=== PATIENT | male | born 1940 | race Caucasian/White ===

== ENCOUNTER → 2018-05-07 | Outpatient (CLI) | payer OTHER ==
[~2018-05-07] MED LIST: ALTACE10 MG PO; BACTRIM DS TAB1 EACH PO; COUMADIN 2.5MG2.5 M1 PO; CRESTOR10 MG PO; MEDROLDOSEPACK PO; METFORMIN HCL500 MG PO; PROCARDIA XL30 MG PO; TRIAMCINOLONE A80 G2 TOP
== END ==
LOC: M.WC 09:28
DX: T23.222A Burn of second degree of single left finger (nail) except thumb, initial encounter (principal); T31.0 Burns involving less than 10% of body surface; L03.114 Cellulitis of left upper limb; E11.22 Type 2 diabetes mellitus with diabetic chronic kidney disease; I12.9 Hypertensive chronic kidney disease with stage 1 through stage 4 chronic kidney disease, or unspecified chronic kidney disease; N18.9 Chronic kidney disease, unspecified; E11.36 Type 2 diabetes mellitus with diabetic cataract; E11.40 Type 2 diabetes mellitus with diabetic neuropathy, unspecified; E78.5 Hyperlipidemia, unspecified; G47.30 Sleep apnea, unspecified; F17.200 Nicotine dependence, unspecified, uncomplicated; F31.9 Bipolar disorder, unspecified; X08.8XXA Exposure to other specified smoke, fire and flames, initial encounter; Y93.89 Activity, other specified; Y92.89 Other specified places as the place of occurrence of the external cause; Y99.8 Other external cause status

== ENCOUNTER → 2018-05-11 | Outpatient (CLI) | payer OTHER | LOC: M.WC 06:14 | DX: T23.222D Burn of second degree of single left finger (nail) except thumb, subsequent encounter (principal); T31.0 Burns involving less than 10% of body surface; E11.22 Type 2 diabetes mellitus with diabetic chronic kidney disease; I12.9 Hypertensive chronic kidney disease with stage 1 through stage 4 chronic kidney disease, or unspecified chronic kidney disease; N18.9 Chronic kidney disease, unspecified; E11.40 Type 2 diabetes mellitus with diabetic neuropathy, unspecified; E11.36 Type 2 diabetes mellitus with diabetic cataract; E78.5 Hyperlipidemia, unspecified; G47.30 Sleep apnea, unspecified; F31.9 Bipolar disorder, unspecified; X08.8XXD Exposure to other specified smoke, fire and flames, subsequent encounter; F17.200 Nicotine dependence, unspecified, uncomplicated ==

== ENCOUNTER → 2018-05-14 | Outpatient (CLI) | payer OTHER | LOC: M.WC 02:24 | DX: T23.232D Burn of second degree of multiple left fingers (nail), not including thumb, subsequent encounter (principal); E11.22 Type 2 diabetes mellitus with diabetic chronic kidney disease; I12.9 Hypertensive chronic kidney disease with stage 1 through stage 4 chronic kidney disease, or unspecified chronic kidney disease; N18.3 Chronic kidney disease, stage 3 (moderate); E11.42 Type 2 diabetes mellitus with diabetic polyneuropathy; E11.65 Type 2 diabetes mellitus with hyperglycemia; E11.36 Type 2 diabetes mellitus with diabetic cataract; E78.5 Hyperlipidemia, unspecified; I25.10 Atherosclerotic heart disease of native coronary artery without angina pectoris; G47.30 Sleep apnea, unspecified; F31.9 Bipolar disorder, unspecified; F17.200 Nicotine dependence, unspecified, uncomplicated; X17.XXXD Contact with hot engines, machinery and tools, subsequent encounter ==

== ENCOUNTER → 2018-05-21 | Outpatient (CLI) | payer OTHER | LOC: M.WC 08:00 | DX: T23.222D Burn of second degree of single left finger (nail) except thumb, subsequent encounter (principal); T31.0 Burns involving less than 10% of body surface; E11.22 Type 2 diabetes mellitus with diabetic chronic kidney disease; I12.9 Hypertensive chronic kidney disease with stage 1 through stage 4 chronic kidney disease, or unspecified chronic kidney disease; N18.9 Chronic kidney disease, unspecified; E11.40 Type 2 diabetes mellitus with diabetic neuropathy, unspecified; E11.36 Type 2 diabetes mellitus with diabetic cataract; E78.5 Hyperlipidemia, unspecified; E66.3 Overweight; G47.30 Sleep apnea, unspecified; F31.9 Bipolar disorder, unspecified; F17.200 Nicotine dependence, unspecified, uncomplicated; Z68.30 Body mass index [BMI] 30.0-30.9, adult; X08.8XXD Exposure to other specified smoke, fire and flames, subsequent encounter ==

== ENCOUNTER → 2018-05-28 | Outpatient (CLI) | payer OTHER | LOC: M.WC 04:42 | DX: T23.232D Burn of second degree of multiple left fingers (nail), not including thumb, subsequent encounter (principal); T31.0 Burns involving less than 10% of body surface; E11.22 Type 2 diabetes mellitus with diabetic chronic kidney disease; E11.40 Type 2 diabetes mellitus with diabetic neuropathy, unspecified; E11.65 Type 2 diabetes mellitus with hyperglycemia; E11.36 Type 2 diabetes mellitus with diabetic cataract; E78.5 Hyperlipidemia, unspecified; I12.9 Hypertensive chronic kidney disease with stage 1 through stage 4 chronic kidney disease, or unspecified chronic kidney disease; N18.9 Chronic kidney disease, unspecified; G47.30 Sleep apnea, unspecified; F31.9 Bipolar disorder, unspecified; F17.200 Nicotine dependence, unspecified, uncomplicated; X17.XXXD Contact with hot engines, machinery and tools, subsequent encounter ==

== ENCOUNTER 2018-06-12 18:24 | Inpatient (IN) | payer OTHER ==
[2018-06-12] VITALS (10 sets, daily range): BP systolic 131–190; BP diastolic 57–78
[~2018-06-12] VITALS: Ht 182.9 cm; Wt 94.3 kg
[~2018-06-12 18:24] MED LIST changes: -COUMADIN 2.5MG2.5 M1 PO
[2018-06-12 18:45] LABS: HEMATOCRIT 48.1 % (42.0-52.0); MCH 29.9 pg (26.0-34.0); MCHC 33.4 g/dL (28.0-37.0); MCV 89.5 fL (80.0-100.0); MPV 8.2 fl. (7.2-11.1); NUCLEATED RBCS 0 /100WBC; PLATELET COUNT* 220 thou/uL (150-400); RBC 5.37 mil/uL (4.50-6.00); RDW-CV 14.9 % (10.5-14.5)
[2018-06-12 18:53] LABS: ANION GAP 7 mmol/L (7-16); BUN 15 mg/dL (7-18); CALCIUM 8.7 mg/dL (8.5-10.1); CHLORIDE 97 mmol/L (98-107); CO2 31 mmol/L (21-32); CREATININE 1.3 mg/dL (0.6-1.3); GLUCOSE 147 mg/dL (70-99); POTASSIUM 4.6 mmol/L (3.5-5.1); SODIUM 135 mmol/L (136-145)
[2018-06-12 18:55] LABS: APTT 27.6 Seconds (25.0-31.3); INR 1.1; PROTIME 11.4 Seconds (9.20-11.50)
[2018-06-12 19:04] LABS: ALBUMIN 4.4 g/dL (3.4-5.0); ALKALINE PHOSPHATASE 69 U/L (46-116); NT-PRO BRAIN NAT PEPTIDE 1408 pg/mL (<300); SGOT 21 U/L (15-37); SGPT 29 U/L (30-65); TOTAL BILIRUBIN 1.4 mg/dL (<0.1-1.0); TOTAL PROTEIN 8.7 g/dL (6.4-8.2); TROPONIN-I LEVEL <0.06 ng/mL (<0.06)
[2018-06-12 19:08] LABS: ABSOLUTE BASOPHILS 0.1 thou/uL (0.0-0.2); ABSOLUTE EOSINOPHILS 0.1 thou/uL (0.0-0.7); ABSOLUTE LYMPHOCYTES 1.4 thou/uL (0.8-5.3); ABSOLUTE MONOCYTES 0.1 thou/uL (0.0-1.2); ABSOLUTE NEUTROPHILS 11.2 thou/uL (1.6-8.1); ATYPICAL LYMPHS 4 %
[2018-06-12 19:09] LABS: PLATELET ESTIMATE ADEQUATE
[2018-06-13] VITALS (16 sets, daily range): BP systolic 109–144; BP diastolic 58–70
[2018-06-13 02:47] LABS: ABSOLUTE LYMPHOCYTES 0.7 thou/uL (0.8-5.3); ABSOLUTE MONOCYTES 0.4 thou/uL (0.0-1.2); ABSOLUTE NEUTROPHILS 14.3 thou/uL (1.6-8.1); BASOPHILS 0.2 %; HEMATOCRIT 45.8 % (42.0-52.0); HEMOGLOBIN 15.3 gm/dL (14.0-18.0); LYMPHOCYTES 4.6 %; MCH 29.8 pg (26.0-34.0); MCHC 33.5 g/dL (28.0-37.0); MCV 88.9 fL (80.0-100.0); MONOCYTES 2.6 %; MPV 8.2 fl. (7.2-11.1); NUCLEATED RBCS 0 /100WBC; PLATELET COUNT* 226 thou/uL (150-400); POLYS 92.6 %; RBC 5.15 mil/uL (4.50-6.00); WBC 15.4 thou/uL (4.0-11.0)
[2018-06-13 04:15] LABS: CALCIUM 8.4 mg/dL (8.5-10.1); CREATININE 1.4 mg/dL (0.6-1.3); POTASSIUM 4.3 mmol/L (3.5-5.1); TOTAL BILIRUBIN 1.2 mg/dL (<0.1-1.0); TOTAL PROTEIN 8.1 g/dL (6.4-8.2)
--- NOTE | 2018-06-13 12:48 | EKG ---
[place] [address] ELECTROCARDIOGRAM REPORT Name: ALEXANDER AN Room: [address] ADM IN M.R.#: [id number] Admission: 06/12/18 Attend Phys: Terry Eden MD Discharge: Date of : 42 Report #: [id number] THIS REPORT FOR: //name// [facility] ED Test Date: 2018-06-12 Test Time: 18:30:21 Pat Name: ALEXANDER AN Department: Room: [facility] Gender: M Acid Wash Operator: Lyle GIRALDO : 1940 Requested By: Dashawn Lipscomb Order Number: [id number] MD: Lino Horvath Measurements Intervals [place] Rate: 60 P: 0 RI: 68 QRS: -81 QRSD: 147 T: 85 QT: 457 QTc: 457 Interpretive Statements af Short RI interval Nonspecific IVCD with LAD LVH with secondary repolarization abnormality Inferior infarct, acute (RCA) Anterolateral infarct, old Probable RV involvement, suggest recording right precordial leads No previous ECG available for comparison Electronically Signed On 06-13-2018 12:48:19 CDT by Lino Horvath [email or web address] <ELECTRONICALLY SIGNED> By: Lino Horvath MD, FACC 06/13/18 1248 29 183 Lino Horvath MD, FACC /EPI
--- NOTE | 2018-06-13 12:48 | EKG ---
[place] [address] ELECTROCARDIOGRAM REPORT Name: ALEXANDER AN Room: [address] ADM IN M.R.#: [id number] Admission: 06/12/18 Attend Phys: Terry Eden MD Discharge: Date of : 42 Report #: [id number] THIS REPORT FOR: //name// [facility] ED Test Date: 2018-06-12 Test Time: 18:32:28 Pat Name: ALEXANDER AN Department: Room: [address] Gender: M Vice President Education: Lyle GIRALDO : 1940 Requested By: Dashawn Lipscomb Order Number: [id number] Reading MD: Lino Horvath Measurements Intervals [place] Rate: 60 P: AL: QRS: -81 QRSD: 133 T: 85 QT: 450 QTc: 450 Interpretive Statements Atrial fibrillation Nonspecific IVCD with LAD Left ventricular hypertrophy Probable inferior infarct, acute Anterolateral infarct, old No previous ECG available for comparison Electronically Signed On 06-13-2018 12:48:30 CDT by Lino Horvath [email or web address] <ELECTRONICALLY SIGNED> By: Lino Horvath MD, [facility] 06/13/18 1248 183 183 Lino Horvath MD, [facility] /EPI
[2018-06-14 00:34] VITALS: BP 125/53
[2018-06-14 04:25] VITALS: BP 115/63
[2018-06-14 07:55] VITALS: BP 126/60
[2018-06-14 09:41] LABS: ALBUMIN 3.4 g/dL (3.4-5.0); CALCIUM 8.5 mg/dL (8.5-10.1); CREATININE 1.7 mg/dL (0.6-1.3); POTASSIUM 3.9 mmol/L (3.5-5.1); TOTAL BILIRUBIN 0.9 mg/dL (<0.1-1.0); TOTAL PROTEIN 7.4 g/dL (6.4-8.2)
[2018-06-14 12:02] VITALS: BP 109/55
[2018-06-14 15:59] VITALS: BP 119/59
[2018-06-14 19:55] VITALS: BP 116/76
[2018-06-14 22:09] LABS: GLYCOHEMOGLOBIN (HGB A1C) 5.5 % (4.8-5.6)
[2018-06-15] VITALS: BP 150/67
[2018-06-15 04:00] VITALS: BP 121/72
[2018-06-15 04:53] LABS: CHOLESTEROL 141 mg/dL (<200); HDL CHOLESTEROL 48 mg/dL (>40); LDL CHOLESTEROL 79 mg/dL (<100); TC:HDL 2.9 Ratio (Not establshd); TRIGLYCERIDE 74 mg/dL (<150); VLDL 15 mg/dL (<40)
[2018-06-15 05:20] LABS: SERUM ASSESSMENT CLEAR
[2018-06-15 08:30] VITALS: BP 121/66
[2018-06-15 12:00] VITALS: BP 128/72
--- NOTE | 2018-06-15 13:22 | CON ---
[address] [address] CONSULTATION Name: ALEXANDER AN Room: [address] IN M.R.#: [id number] Admission: 06/12/18 Attend Phys: Terry Eden MD Discharge: Date of : 42 Report #: [id number] THIS REPORT FOR: //name// CC: Terry Lu DATE OF SERVICE: 06/13/2018 REFERRING PHYSICIAN: Terry Eden MD CHIEF COMPLAINT: Dyspnea. HISTORY OF PRESENT ILLNESS: The patient is a 78-year-old male who quit smoking at the age of 65. He was smoking at least 1 pack of cigarettes per day since the age of 16 or so. He states that he does not have COPD, is not on oxygen therapy at home. According to the patient, 3 days prior to admission he began to feel not well. His symptoms basically consisted of shortness of breath with exertion and generalized weakness. This lasted for about 3 days. On the day of admission, he was in bed lying down and states that he lost his ability to talk. He did not have any other symptoms. He was aware of his surroundings. He did not lose consciousness. He had not had any nausea, vomiting, chest or abdominal pain. He states he had no visual disturbance, nor did he have any headaches. His was present and since he was not getting any better, the EMS was called, the patient was brought to the Emergency Room. According to the patient, by the time he was loaded into the ambulance, he states that he started to feel better, was able to then at that point mobilize adequately and able to communicate. Today, he is feeling well. No shortness of breath or discomfort. PAST MEDICAL HISTORY: Significant for hemorrhoidectomy, nasal surgery, hypertension, diabetes. He has a pacemaker; he has had 2 different ones. He has a history of congestive failure. SOCIAL HISTORY: He is . He is a prior smoker. He quit drinking at the age of 36. He worked for [email or web address] and retired at the age of 56. REVIEW OF SYSTEMS: System review negative other than what is outlined above. ALLERGIES: PENICILLIN. MEDICATIONS: Prior to admission include nifedipine, ramipril, Crestor and metformin. FAMILY HISTORY: Noncontribut[place] [address] CONSULTATION Name: ALEXANDER AN Room: [address] IN [facility].#: [id number] Admission: 06/12/18 Attend Phys: Terry Eden MD Discharge: Date of : 42 Report #: [id number] PHYSICAL EXAMINATION: VITAL SIGNS: Blood pressure 132/68, respiratory rate 13 nonlabored, pulse rate 60 and regular, temperature 98.6. His rate is permanently paced. HEENT: Head atraumatic. Eyes: Pupils are round, equal, reactive. There is no facial weakness. His extraocular muscles are intact. Oral cavity moist, no lesions. Good dentition. NECK: No adenopathy. CHEST: Clear throughout. No wheezes, rales or rhonchi. CARDIOVASCULAR: Regular rhythm. No murmurs or rubs. ABDOMEN: Obese. EXTREMITIES: Negative for edema or clubbing. SKIN: Warm, dry without rash. LYMPHATICS: Negative for adenopathy. Pulses equal bilaterally. NEUROLOGIC: His cranial nerves appear intact. No lateralizing signs, strength equal bilaterally. IMAGING: Chest x-ray reveals no evidence of infiltrates or effusions. V/Q scan was low probability for PE. Venous Dopplers negative. LABORATORY DATA: Hemoglobin and hematocrit of 15 and 46, white count 15,000. Sodium 136, potassium 4.3, chloride 98, CO2 of 26, BUN of 21, creatinine 1.4, EGFR 49. IMPRESSION: 1. Probably transient ischemic attack. 2. Obesity. 3. History of pacemaker insertion. 4. Prior tobacco abuse, probably has a component of chronic obstructive pulmonary disease. RECOMMENDATIONS: Aspiration precautions, DVT prophylaxis. Continue with reflux prophylaxis. Initiate aerosol treatments q.i.d. at this time. Pulmonary hedrick, he will probably need a sleep study as an outpatient. Also, would recommend pulmonary functions. At this point, no further recommendations, we will sign off his case. <ELECTRONICALLY SIGNED> By: Natanael Smith MD 06/15/18 1322 1317 1809Alezio Smith MD /nt
[2018-06-15 15:19] VITALS: BP 130/76
[2018-06-15 19:20] VITALS: BP 123/68
[2018-06-16] VITALS: BP 137/65
[2018-06-16 04:00] VITALS: BP 142/72
[2018-06-16 05:44] LABS: ABSOLUTE EOSINOPHILS 0.1 thou/uL (0.0-0.7); ABSOLUTE LYMPHOCYTES 1.7 thou/uL (0.8-5.3); ABSOLUTE MONOCYTES 0.6 thou/uL (0.0-1.2); BASOPHILS 0.4 %; EOSINOPHILS 1.5 %; HEMATOCRIT 46.4 % (42.0-52.0); HEMOGLOBIN 15.3 gm/dL (14.0-18.0); LYMPHOCYTES 20.3 %; MCH 29.5 pg (26.0-34.0); MCHC 32.9 g/dL (28.0-37.0); MCV 89.8 fL (80.0-100.0); MONOCYTES 7.6 %; MPV 8.4 fl. (7.2-11.1); NUCLEATED RBCS 0 /100WBC; PLATELET COUNT* 198 thou/uL (150-400); POLYS 70.2 %; RBC 5.16 mil/uL (4.50-6.00); RDW-CV 15.3 % (10.5-14.5); WBC 8.5 thou/uL (4.0-11.0)
[2018-06-16 06:00] LABS: CALCIUM 8.3 mg/dL (8.5-10.1); CREATININE 1.2 mg/dL (0.6-1.3); POTASSIUM 4.3 mmol/L (3.5-5.1)
[2018-06-16 06:01] LABS: INR 1.1; PROTIME 11.2 Seconds (9.20-11.50)
[2018-06-16 08:54] VITALS: BP 143/62
[2018-06-16] MEDS ORDERED: COUMADIN 2.5MG2.5 M1 PO (10:18)
[2018-06-16 10:22] VITALS: BP 143/62
--- NOTE | 2018-06-16 10:38 | 2DMMODE ---
[place] [address] 2 D/M-MODE ECHOCARDIOGRAM Name: ALEXANDER AN Room: [address] IN [facility]#: [id number] Admission: 06/12/18 Attend Phys: Terry Eden, Discharge: Date of : 42 Date of Service: 06/15/18 1348 Report #: [id number] THIS REPORT FOR: //name// APPROVED REPORT Study performed: 06/15/2018 09:52:45 EXAM: Comprehensive 2D, Doppler, and color-flow Echocardiogram Patient Location: In-Patient Room #: [facility] Status: routine BSA: 2.17 HR: 63 bpm BP: 121/72 mmHg Rhythm: NSR Other Information Study Quality: Good Indications CVA/TIA Dyspnea Echo Enhancing Agent Indication: Rule out Shunt Agent(s) / Amount(s) Used: Agitated Saline 10 cc 2D Dimensions IVSd: 13.74 (7-11mm) LVOT Diam: 20.79 (18-24mm) LVDd: 45.20 mm PWd: 11.72 (7-11mm) Ascending Ao: 35.04 (22-36mm) LVDs: 25.10 (25-40mm) Aortic Root: 34.29 mm Volumes Left Atrial Volume (Systole) LA ESV Index: 37.80 mL/m2 Aortic Valve AoV Peak Gianluca.: 1.32 m/s AO Peak Gr.: 6.97 mmHg LVOT Max P.59 mmHg AO Mean Gr.: 4.12 mmHg LVOT Mean P.89 mmHg LVOT Max V: 1.07 m/s AO V2 VTI: 26.31 cm LVOT Mean V: 0.83 m/s BLAYNE (VTI): 3.27 cm2 LVOT V1 VTI: 25.37 [place] [address] 2 D/M-MODE ECHOCARDIOGRAM Name: ALEXANDER AN Room: [address] IN .R.#: [id number] Admission: 06/12/18 Attend Phys: Terry Eden, Discharge: Date of : 42 Date of Service: 06/15/18 1348 Report #: [id number] Mitral Valve MV Decel. Time: 166.52 ms MV PHT: 48.29 ms MVA (PHT): 4.56 cm2 TDI Medial E' Gianluca.: 0.12 m/s Lateral E' Gianluca.: 0.12 m/s Pulmonary Valve PV Peak Gianluca.: 0.98 m/s PV Peak Gr.: 3.82 mmHg Tricuspid Valve RAP Estimate: 5.00 mmHg TR Peak Gr.: 22.80 mmHg RVSP: 27.80 mmHg PA Pressure: 27.80 mmHg Left Ventricle The left ventricle is normal size. There is normal LV segmental wall motion. Mild concentric left ventricular hypertrophy. Left ventricular systolic function is normal. The left ventricular ejection fraction is within the normal range. LVEF is 55-60%. Grade IV - fixed restrictive diastolic dysfunction. Right Ventricle The right ventricle is normal size. The right ventricular systolic function is normal. Pacemaker lead is present in the right ventricle. Atria Left atrium is mildly dilated. Interatrial septum is intact without evidence of ASD or PFO. The right atrium size is normal. Aortic Valve Mild aortic valve sclerosis. Mild aortic regurgitation. There is no aortic valvular stenosis. Mitral Valve The mitral valve is normal in structure. Trace mitral regurgitation. No evidence of mitral valve stenosis. Tricuspid Valve The tricuspid valve is normal in structure. Trace tricuspid regurgitation. No pulmonary [place] [address] 2 D/M-MODE ECHOCARDIOGRAM Name: ALEXANDER AN Room: [address] IN [facility]#: [id number] Admission: 06/12/18 Attend Phys: Terry Eden, Discharge: Date of : 42 Date of Service: 06/15/18 1348 Report #: [id number] The pulmonary valve is normal in structure. Mild pulmonic regurgitation. Great Vessels The aortic root is normal in size. IVC is normal in size and collapses >50% with inspiration. Pericardium There is no pericardial effusion. <Conclusion> Mild concentric left ventricular hypertrophy. LVEF is 55-60%. Left atrium is mildly dilated. Mild aortic valve sclerosis. Interatrial septum is intact without evidence of ASD or PFO. <ELECTRONICALLY SIGNED> By: Alexander Hernández MD, FACC 06/15/18 1348 1348 1348 Alexander Hernández MD, FACC /INF
[2018-06-16 11:12] VITALS: BP 143/62
[2018-06-16 12:02] VITALS: BP 143/62
[2018-06-16 23:08] LABS: ADENOVIRUS Negative (Negative); INFLUENZA A Negative (Negative); INFLUENZA B Negative (Negative); METAPNEUMOVIRUS Negative (Negative); PARAINFLUENZA 1 Negative (Negative); PARAINFLUENZA 2 Positive (Negative); PARAINFLUENZA 3 Negative (Negative); RHINOVIRUS Negative (Negative); RSV A Negative (Negative); RSV B Positive (Negative)
--- NOTE | 2018-06-27 12:28 | CON ---
[address] [address] CONSULTATION Name: ALEXANDER AN Room: [address] IN M.R.#: [id number] Admission: 06/12/18 Attend Phys: Terry Eden MD Discharge: 06/16/18 Date of : 42 Report #: [id number] THIS REPORT FOR: //name// [facility]ICIAN: Dr. Ilia Rivera. DIVER HELPER: Dr. Marcell Polk. CHIEF COMPLAINT: Weakness, slurred speech. HISTORY OF PRESENT ILLNESS: The patient is a 78-year-old man with an underlying history of atrial fibrillation who has presented to the Emergency Department here with an episode of weakness, fatigue and he also had slurred speech while he was lying in bed. He felt like he could not move. This morning, he is asymptomatic. He was admitted to the ICU. He has underlying paced rhythm. Historically, based on records from outpatient data, he has underlying persistent atrial fibrillation. He had been taking Xarelto samples. He could not afford the copay and apparently did not want to be on warfarin at that time. However, he ran out of samples and did not really notify us. He has not taken the drug in several days. From a cardiovascular standpoint, he denies palpitations, heart racing or skipping. His underlying rhythm is paced, was stable without any cardiac pauses. He has no complaints of chest discomfort. He had some shortness of breath. His chest x-ray was unremarkable for congestive heart failure. PAST MEDICAL HISTORY: High grade AV block, status post permanent pacemaker implantation, AAA, persistent atrial fibrillation, tobacco abuse, diabetes, hypertension, hyperlipidemia. HOME MEDICATIONS: Include Glucophage 500 mg p.o. daily, Adalat 30 mg p.o. daily, Altace 10 mg daily and Crestor 10 mg daily. PAST SURGICAL HISTORY: [employer] permanent pacemaker implanted approximately 5 years ago generator change, hemorrhoid surgery, ____. FAMILY HISTORY: Positive for cancer and heart attack. SOCIAL HISTORY: He is a former smoker, smoked between age 14 to [place] 66[place] [address] CONSULTATION Name: JUVEALEXANDER Clyde Room: [address]#: [id number] Admission: 06/12/18 Attend Phys: Terry Eden MD Discharge: 06/16/18 Date of : 41 Report #: [id number] drinks occasionally. REVIEW OF SYSTEMS: GENERAL: No fevers or chills. PULMONARY: No wheezing or cough. Positive shortness of breath. NEUROLOGIC: As noted above. Positive slurred speech. Positive weakness, no headaches, no blurred vision or seizure. PSYCHIATRIC: No depression, no anxiety. MUSCULOSKELETAL: No arthritis, connective tissue disease. SKIN: No rashes, hives or skin conditions. EYES: Positive for glasses. EARS, NOSE, THROAT AND MOUTH: No decreased hearinig, no bleeding from nose. RESPIRATORY: Positive cough. CARDIOVASCULAR: No palpitations, no chest discomfort, no shortness of breath. ENDOCRINE: Positive diabetes. GASTROINTESTINAL: No vomiting, vomiting blood or ulcers, jaundice, hepatitis. GENITOURINARY: No dysuria or hematuria. PHYSICAL EXAMINATION: VITAL SIGNS: Blood pressure 132/68, pulse is 60, O2 sats 94% on 2 liters nasal cannula. GENERAL: The patient is alert, oriented, in no apparent distress. HEENT: Unremarkable. NECK: Supple. No jugular venous distention. CARDIOVASCULAR: Regular. I cannot hear a rub or gallop. LUNGS: Clear to auscultation. ABDOMEN: Soft, nontender. EXTREMITIES: There is no peripheral edema. NEUROLOGIC: There are no focal deficits. SKIN: Warm and dry. LABORATORY DATA: ECG demonstrates a paced rhythm. Chest x-ray shows no acute process. Hemoglobin is 15.2, white blood cell count is 15, platelet count is 226,000. Sodium is 136, potassium is 4.3, chloride is 98, CO2 is 26, BUN is 21, creatinine is 1.4. INR is 1.1. D-dimer is 0.88. IMPRESSION: 1. Slurred speech, weakness. Given his underlying history of atrial fibrillation and his CHADS-VASc score of 4, he should be anticoagulated and he was supposed to have been taking Xarelto, but he apparently has not been taking it. After discussing with the patient the risks and benefits, he is agreeable to starting warfarin. However, I want to have him seen by Neurology first. 2. Atrial fibrillation. As noted above, he is asymptomatic from a cardiovascular standpoint from this. 3. Status post permanent pacemaker. His device function overnight on telemetry is unremarkable and he has home monitoring device. He has a [employer] device and [address] [address] CONSULTATION Name: ALEXANDER AN Room: [address]ain[place].#: [id number] Admission: 06/12/18 Attend Phys: Terry Eden MD Discharge: 06/16/18 Date of : 42 Report #: [id number] he is followed by Dr. Polk. 4. Peripheral vascular disease. He will continue with aggressive blood pressure monitoring and surveillance by his usual care team. <ELECTRONICALLY SIGNED> By: Lino Horvath MD, FACC 06/27/18 1228 1055 1243Lino Horvath MD, FACC /nt
--- NOTE | 2018-07-13 12:29 | CON ---
[address] [address] CONSULTATION Name: ALEXANDER AN Room: [address] IN M.R.#: [id number] Admission: 06/12/18 Attend Phys: Terry Eden MD Discharge: 06/16/18 Date of : 42 Report #: [id number] THIS REPORT FOR: //name// CC: Terry Lu DATE OF SERVICE: 06/14/2018 HISTORY OF PRESENT ILLNESS: The patient is a 78-year-old man. He was admitted to the hospital through the Emergency Room on 06/12/2018 after about 3 days of shortness of breath. The patient had noted over the last several days lethargy, runny nose, cough and sputum. He states that he was unable to breathe when he was lying down and he had gurgling speech, and the chart indicated that he could not talk for a period of time. The patient has completely recovered from those symptoms. He has a long history of diabetes for which he takes metformin and he has a complicated cardiovascular history with hypertension, atrial fibrillation and the placement of a permanent pacemaker. He has been seen for congestive heart failure as well. At the present time, he is feeling well, but neurology is consulted regarding the possibility of a TIA causing his inability to speak. He does complain of a history of swallowing at times, but the symptom that is bothering him the most right now is his memory. He states that he puts things down and he cannot remember them and this has been going on for 2-3 months and he thinks it is getting worse over time. He has no trouble with driving. He never gets lost, and he has no trouble taking care of his own financial affairs. PAST MEDICAL HISTORY: Positive for high-grade AV block, status post permanent pacemaker, atrial fibrillation and he had been on Xarelto in the past and will be going back on it. Tobacco abuse, he stopped smoking several years ago. Hypertension and hyperlipidemia. FAMILY HISTORY: Positive for cancer and heart disease. SOCIAL HISTORY: He stopped smoking at 66. He drinks occasionally. REVIEW OF SYSTEMS: He did report fever, although this has not been documented. He denies neurological symptoms other than pain in the right shoulder area, particularly with movement. He does note some problems with his gait. He denies depression or anxiety, although he states that he had been under a lot of stress recently and he had been sleep deprived. He denies rashes. He states that he does have a history of previous surgery on his nose from years ago and has runny nose from time to time. Gastrointestinal and genitourinary [place] [address] CONSULTATION Name: ALEXANDER AN Room: [address] IN M.R.#: [id number] Admission: 06/12/18 Attend Phys: Terry Eden MD Discharge: 06/16/18 Date of : 42 Report #: [id number] PHYSICAL EXAMINATION: VITAL SIGNS: Blood pressure 109/55, temperature 36.3, pulse 60. GENERAL APPEARANCE: The patient is an overweight man, appearing his stated age, in no apparent distress. NECK: Supple. No edema is noted. NEUROLOGIC: He has normal mental status. He did well with remembering 3 objects after 3 minutes. He only missed 1 month in reciting the months in backwards order, which was September. He had mild difficulty spelling "world" backwards. He did calculations well. No evidence of aphasia was noted. On cranial nerve testing, pupils are small, but equally round and reactive. Extraocular movements are full. Visual peña are full to confrontation. Facial sensation and mobility are normal. Hearing is intact bilaterally. The patient has a prominent rhinophyma. Tongue is normal. Motor testing revealed full power in his arms and legs. There was mild decreased effort in the right upper arm due to pain in the shoulder. The tone was normal. No tremor was noted. Coordination testing revealed difficulty with fzbuje-rw-lqwz, left worse than right and sbor-bl-mbuy, left worse than right. He had mild clumsy movements on rapid alternating movement testing, particularly of the left hand. Reflexes were 2+ in the arms, 3+ at the knees, trace at the ankles bilaterally. The toes were downgoing. Gait was wide based and he was mildly ataxic. IMAGING: Have shown a head CT scan, which showed cerebral atrophy and volume loss, no acute changes were seen. There are bilateral basal ganglia calcifications noted. Carotid Dopplers showed no significant stenosis. LABORATORY STUDIES: Showed an elevated white count of 13,000, platelet count was 226,000, hemoglobin 15.3. Sed rate was 8. IMPRESSION: 1. 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 2. He does have some mild problems with short-term memory, but does not meet criteria for dementia. More likely, this represents a mild cognitive impairment. He has been under a lot of stress lately, which may have contributed to this problem. 3. I would recommend checking B12 levels since he is on metformin, which can interfere with B12. 4. I see absolutely no problem with restarting his Xarelto. He cannot have an MRI scan of the head because of his pacemaker. There is a possibility that he could be having very small cardioembolic events, but the treatment for this would be to go back on the Xarelto as well. [place] [id number] CONSULTATION Name: ALEXANDER AN Room: [address] IN .R.#: [id number] Admission: 06/12/18 Attend Phys: Terry Eden MD Discharge: 06/16/18 Date of : 42 Report #: [id number] Thanks again for the kind consultation. <ELECTRONICALLY SIGNED> By: Alfredo Barnett MD 07/13/18 1229 1407 1819Alfredo Barnett MD /nt
== END 2018-06-16 14:14 | disposition home health service (06) | DRG 177 ==
LOC: M.ERS 18:24 → M.2W 19:50 → M.ICU 19:50 → M.TBA-ER 19:50 → M.ICU 20:45 → M.2W 06-13 14:00
PROVIDERS: Emergency Medicine; Emergency Medicine Emergency Medical Services; Internal Medicine Cardiovascular Disease; ADMIT Internal Medicine
PROC: 5A09357 Assistance with Respiratory Ventilation, Less than 24 Consecutive Hours, Continuous Positive Airway Pressure (ICD-10-PCS; principal; 2018-06-13)
DX: J15.6 Pneumonia due to other Gram-negative bacteria (principal); J96.01 Acute respiratory failure with hypoxia; I50.33 Acute on chronic diastolic (congestive) heart failure; R65.10 Systemic inflammatory response syndrome (SIRS) of non-infectious origin without acute organ dysfunction; J44.0 Chronic obstructive pulmonary disease with (acute) lower respiratory infection; I48.1 Persistent atrial fibrillation; G45.9 Transient cerebral ischemic attack, unspecified; E78.5 Hyperlipidemia, unspecified; I11.0 Hypertensive heart disease with heart failure; E11.42 Type 2 diabetes mellitus with diabetic polyneuropathy; E66.9 Obesity, unspecified; E11.51 Type 2 diabetes mellitus with diabetic peripheral angiopathy without gangrene; Z88.0 Allergy status to penicillin; Z95.0 Presence of cardiac pacemaker; Z87.891 Personal history of nicotine dependence; Z79.01 Long term (current) use of anticoagulants; Z79.899 Other long term (current) drug therapy; Z80.9 Family history of malignant neoplasm, unspecified; Z82.49 Family history of ischemic heart disease and other diseases of the circulatory system; Z79.84 Long term (current) use of oral hypoglycemic drugs; Z68.28 Body mass index [BMI] 28.0-28.9, adult

== ENCOUNTER 2019-08-07 14:57 | Inpatient (IN) | payer OTHER ==
[~2019-08-07] VITALS: Ht 182.9 cm; Wt 104.7 kg
[~2019-08-07 14:57] MED LIST changes: +COUMADIN 2.5MG2.5 M1 PO
[2019-08-07 15:05] VITALS: BP 173/67
[2019-08-07] MEDS ORDERED: NEURONTIN 300M300 M2 PO (15:10)
[2019-08-07] MEDS ORDERED: TRAMADOL 50 MG50 MG PO (15:11)
[2019-08-07] MEDS ORDERED: VENLAFAXINE H37.5 MG PO (15:13)
[2019-08-07] MEDS ORDERED: ELIQUIS5 MG PO (15:13)
[2019-08-07 15:29] LABS: HEMATOCRIT 43.5 % (42.0-52.0); HEMOGLOBIN 14.8 gm/dL (14.0-18.0); MCH 30.5 pg (26.0-34.0); MCV 89.8 fL (80.0-100.0); MPV 8.6 fl. (7.2-11.1); NUCLEATED RBCS 0 /100WBC; PLATELET COUNT* 243 thou/uL (150-400); RBC 4.84 mil/uL (4.50-6.00); RDW-CV 14.4 % (10.5-14.5); WBC 16.8 thou/uL (4.0-11.0)
[2019-08-07 15:39] LABS: CALCIUM 9.7 mg/dL (8.5-10.1); CREATININE 1.3 mg/dL (0.6-1.3); POTASSIUM 3.8 mmol/L (3.5-5.1)
[2019-08-07 15:49] LABS: ALBUMIN 3.6 g/dL (3.4-5.0); TOTAL BILIRUBIN 1.9 mg/dL (<0.1-1.0); TOTAL PROTEIN 8.3 g/dL (6.4-8.2)
[2019-08-07 15:58] LABS: ABSOLUTE EOSINOPHILS 0.2 thou/uL (0.0-0.7); ABSOLUTE LYMPHOCYTES 0.8 thou/uL (0.8-5.3); ABSOLUTE MONOCYTES 1.3 thou/uL (0.0-1.2); ABSOLUTE NEUTROPHILS 14.4 thou/uL (1.6-8.1); PLATELET ESTIMATE ADEQUATE
[2019-08-07 16:08] LABS: APTT 31.7 Seconds (25.0-31.3); INR 1.2; PROTIME 12.1 Seconds (9.20-11.50)
[2019-08-07 17:26] LABS: URINE BILIRUBIN NEGATIVE (Negative); URINE BLOOD TRACE (Negative); URINE CLARITY CLEAR; URINE COLOR YELLOW; URINE GLUCOSE-RANDOM NEGATIVE (Negative); URINE KETONES NEGATIVE (Negative); URINE LEUKOCYTES-REFLEX NEGATIVE (Negative); URINE NITRITE-REFLEX NEGATIVE (Negative); URINE PROTEIN 1+ (Negative); URINE UROBILINOGEN 0.2 E.U./dl (0.2-1.0)
[2019-08-07 18:13] VITALS: BP 118/58
[2019-08-07 18:30] VITALS: BP 141/61
--- NOTE | 2019-08-07 19:31 | NUR ---
PATIENT ARRIVED TO FLOOR AT 1830 FROM ER. PATIENT SETTLED TO ROOM AND HISTORY, ASSESSMENT AND VITALS COMPLETED AND DOCUMENTED. PATIENT HAS COMPLAINTS OF ABDOMINAL PAIN BUT STATES PAIN MEDICATION HAS HELPED. PATIENT IS NPO. CALL LIGHT WITHIN REACH.
[2019-08-07 20:00] VITALS: BP 137/70
[2019-08-08 04:52] LABS: ABSOLUTE BASOPHILS 0.1 thou/uL (0.0-0.2); ABSOLUTE EOSINOPHILS 0.1 thou/uL (0.0-0.7); ABSOLUTE LYMPHOCYTES 1.1 thou/uL (0.8-5.3); ABSOLUTE MONOCYTES 1.1 thou/uL (0.0-1.2); ABSOLUTE NEUTROPHILS 14.3 thou/uL (1.6-8.1); BASOPHILS 0.5 %; EOSINOPHILS 0.6 %; HEMATOCRIT 38.7 % (42.0-52.0); LYMPHOCYTES 6.6 %; MCH 29.7 pg (26.0-34.0); MONOCYTES 6.7 %; MPV 8.6 fl. (7.2-11.1); NUCLEATED RBCS 0 /100WBC; PLATELET COUNT* 231 thou/uL (150-400); POLYS 85.6 %; WBC 16.7 thou/uL (4.0-11.0)
[2019-08-08 05:04] LABS: CALCIUM 8.5 mg/dL (8.5-10.1); CREATININE 1.2 mg/dL (0.6-1.3); POTASSIUM 3.8 mmol/L (3.5-5.1)
[2019-08-08 05:24] LABS: HEMOGLOBIN 12.8 gm/dL (14.0-18.0)
--- NOTE | 2019-08-08 05:58 | NUR ---
PT ALERT AND ORIENTED. VSS ON RA. RAC IV SL. ABX FIVEN PER EMAR. NPO. SURGERY HVAE SEEN PT. SEE CONSULTATION NOTE. GI TO SEE PT THI AM. PT COMPLAINING OF BEING HUNGRY AND KEPT ASKING FOR FOOD. PT WAS UP TO BATHROOM BEGINNING OF SHIFT. BUT SEEMED UNSTEADY NIGHT PROGRESSED. URINAL PROVIDED. FALL PRECAUTION IN PLACE. CALL LIGHT WITHIN REACH. WILL CONTINUE TO MONITOR.
[2019-08-08 08:10] VITALS: BP 119/58
--- NOTE | 2019-08-08 11:20 | EKG ---
[place] [address] ELECTROCARDIOGRAM REPORT Name: ALEXANDER AN Room: [address] ADM IN .R.#: [id number] Admission: 08/07/19 Attend Phys: Terry Eden MD Discharge: Date of : 42 Report #: [id number] THIS REPORT FOR: //name// [facility] ED Test Date: 2019-08-07 Test Time: 15:05:49 Pat Name: ALEXANDER AN Department: Room: [facility] Gender: M Warehouse Delivery Manager: [place] : 1940 Requested By: Yady Topete Order Number: [id number] MD: Alexander Hernández Measurements Intervals [place] Rate: 60 P: [place]: QRS: -81 QRSD: 140 T: 92 QT: 473 QTc: 473 Interpretive Statements Afib/flut and V-paced complexes No further analysis attempted due to paced rhythm Compared to ECG 06/12/2018 18:32:28 no change Electronically Signed On 08-08-2019 11:20:19 FILAMENT WELDER by Alexander Hernández [email or web address] <ELECTRONICALLY SIGNED> By: Alexander Hernández MD, FACC 08/08/19 1120 1505 1505 Alexander Hernández MD, [facility] /EPI
[2019-08-08 15:56] VITALS: BP 143/64
--- NOTE | 2019-08-08 17:41 | NUR ---
PATIENT RESTING IN BED. PATIENT IS UP STANDBY ASSIST WITH CANE TO BATHROOM. PATIENT HAS HAD NO BOWEL MOVEMENTS TODAY. PATIENT IS UPSET THAT HE IS NPO, EDUCATION REPEATEDLY GIVEN ON NPO STATUS. PATIENT HAS COMPLAINTS OF ABDOMINAL PAIN, TREATED ADEQUATELY WITH MEDICATION. PATIENT DENIES ANY NEEDS AT THIS TIME. CALL LIGHT WITHIN REACH. BED ALARM ON.
[2019-08-08 20:00] VITALS: BP 136/64
[2019-08-09 05:16] LABS: ABSOLUTE EOSINOPHILS 0.2 thou/uL (0.0-0.7); ABSOLUTE MONOCYTES 0.8 thou/uL (0.0-1.2); ABSOLUTE NEUTROPHILS 8.1 thou/uL (1.6-8.1); BASOPHILS 0.4 %; EOSINOPHILS 2.3 %; HEMATOCRIT 42.3 % (42.0-52.0); MCH 29.5 pg (26.0-34.0); MCV 89.4 fL (80.0-100.0); MONOCYTES 7.7 %; MPV 8.7 fl. (7.2-11.1); NUCLEATED RBCS 0 /100WBC; PLATELET COUNT* 262 thou/uL (150-400); POLYS 79.6 %; RBC 4.73 mil/uL (4.50-6.00); RDW-CV 14.4 % (10.5-14.5); WBC 10.2 thou/uL (4.0-11.0)
[2019-08-09 05:35] LABS: CALCIUM 8.8 mg/dL (8.5-10.1); CREATININE 1.1 mg/dL (0.6-1.3); POTASSIUM 3.7 mmol/L (3.5-5.1)
--- NOTE | 2019-08-09 06:18 | NUR ---
PT SLEPT WELL OVERNIGHT WITHOUT COMPLAINTS. UP WITH SBA AND WALKER TO BR TO VOID, URINAL AT TIMES. NPO. PT NOT HAPPY ABOUT NPO STATUS, STATES HE IS GOING TO GET SOME FRIED CHICKEN TODAY, EDUCATION GIVEN. HS ACCUCHECK 106, NO INSULIN NEEDED. AM LABS. TO HAVE ABD XRAY TODAY. RAC IVF INFUSING PER PUMP, ABX GIVEN ORDERED. USING SWABS FOR ORAL CARE. CALL LITE IN EASY REACH, BED ALARM ON FOR SAFETY.
[2019-08-09 07:50] VITALS: BP 140/68
--- NOTE | 2019-08-09 13:40 | NUR ---
Nutrition: Consult for "loss of appetite." Pt stated he hasn't eaten in 7 days. Admitted with colitis, diverticulitis. Started CLD today; he was eager to eat lunch and was finishing it all during our visit. Albumin 3.6. Wt: 204#. He is hopeful to have more substantial food later today. Low nutrition risk.
[2019-08-09 15:27] VITALS: BP 137/83
--- NOTE | 2019-08-09 18:07 | NUR ---
PT A&OX3 VSS. DENIES PAIN AT THIS TIME. PT RESTING IN BED WITH CALL LIGHT IN REACH. PT RAC IV DC'D THIS SHIFT BY PT. NO REDNESS/SWELLING/ACTIVE BLEEDING AT SITE. IV ACCESS STARTED IN R HAND, 20g. LINE PATENT, ANTIBIOTICS AND FLUIDS CONTINUE TO INFUSE. PT DIET ADVANCED TO CLEAR LIQUIDS BY PHYSICIAN. PT UP SBA W/WALKER. PT REMAINS CONTINIENT OF B/B. PT HAD ABD X RAY THIS AM, NO OBSTRUCTION FOUND. PT IS ACCUCHECK, BLOOD GLUCOSE READINGS REMAIN APPROPRIATE AND IN RANGE. WILL CONTINUE TO MONITOR.
[2019-08-09 20:00] VITALS: BP 150/67
[2019-08-10] MEDS ORDERED: BRILINTA60 MG PO (03:42)
[2019-08-10] MEDS ORDERED: VITAMIN D35000 UNIT PO (03:45)
[2019-08-10] MEDS ORDERED: ORADENT 0.1% DEN5 G1 TOP (03:55)
--- NOTE | 2019-08-10 04:49 | NUR ---
PATIENT NOT PROGRESSING TOWARDS GOALS: ABDOMEN REMAINS TENDER AND FIRM. PATIENT TOLERATING CLEAR LIQUIDS. IVF INFUSING PER ORDERS. NO BM THIS SHIFT. CALL LIGHT WITHIN REACH
[2019-08-10 04:57] LABS: ABSOLUTE EOSINOPHILS 0.3 thou/uL (0.0-0.7); ABSOLUTE LYMPHOCYTES 0.8 thou/uL (0.8-5.3); ABSOLUTE MONOCYTES 0.9 thou/uL (0.0-1.2); ABSOLUTE NEUTROPHILS 7.5 thou/uL (1.6-8.1); BASOPHILS 0.5 %; HEMATOCRIT 43.7 % (42.0-52.0); LYMPHOCYTES 8.9 %; MCH 30.6 pg (26.0-34.0); MCHC 34.4 g/dL (28.0-37.0); MONOCYTES 9.3 %; MPV 8.3 fl. (7.2-11.1); NUCLEATED RBCS 0 /100WBC; PLATELET COUNT* 276 thou/uL (150-400); POLYS 78.3 %; RBC 4.91 mil/uL (4.50-6.00); RDW-CV 14.2 % (10.5-14.5); WBC 9.6 thou/uL (4.0-11.0)
[2019-08-10 05:06] LABS: CALCIUM 8.7 mg/dL (8.5-10.1); CREATININE 1.1 mg/dL (0.6-1.3); POTASSIUM 3.5 mmol/L (3.5-5.1)
[2019-08-10 07:21] VITALS: BP 190/77
--- NOTE | 2019-08-10 15:01 | NUR ---
CM SPOKE WITH PT. HE WAS ALERT AND ORIENTED. HE SAID HE LIVES WITH HIS . SHE IS ABOUT 12 YEARS YOUNGER THAN HE IS. SHE WORKS 3 HRS/DAY OUTSIDE THE HOME. SHE CAN HELP HIM IF NEEDED. HE HAS FALLEN SOME AT HOME. HE HAS A CANE THAT HE USES. STATED AT SOME POINT HE NEEDS A HIP AND KNEE REPLACEMENT. HE SAID I HAVE TO GET RID OF THESE STOMACH PROBLEMS FIRST. HE THINKS HE HAD HOME HEALTH BEFORE BUT COULDNT REMEMBER NAME OF AGENCY. CM WILL FOLLOW FOR DISCHARGE PLANNING.
[2019-08-10 16:00] VITALS: BP 173/74
--- NOTE | 2019-08-10 17:20 | NUR ---
ASSESSMENT COMPLETE. PT ALERT AND ORIENTED X4, FORGETFUL AT TIMES. PT IS IMPULSIVE AND FALL RISK, MOVED CLOSER TO NURSES STATION ROOM 313. PT HAD SUPPOSITORY, PT REPORTS BOWEL MOVEMENTS. PT HAD ONE EPISODE OF VOMITTING THIS EVENING, SMALL AMOUNT OF GREEN EMESIS NOTED. IV ABX AND FLUIDS INFUSING. CLEAR LIQUID DIET. ACCU CHECK ACHS. KUB DONE THIS MORNING, SEE RESULTS. PT/OT CONSULTS. SEE ASSESSMENT AND VITALS FOR OTHER DETAILS. CALL LIGHT WITHIN REACH, BED ALARM IN PLACE. WILL CONTINUE PLAN OF CARE
[2019-08-10 19:50] VITALS: BP 160/71
[2019-08-11 04:30] LABS: HEMOGLOBIN 13.8 gm/dL (14.0-18.0); MCH 29.7 pg (26.0-34.0); MCHC 33.6 g/dL (28.0-37.0); MCV 88.4 fL (80.0-100.0); MPV 8.7 fl. (7.2-11.1); NUCLEATED RBCS 0 /100WBC; PLATELET COUNT* 309 thou/uL (150-400); RBC 4.64 mil/uL (4.50-6.00); RDW-CV 14.3 % (10.5-14.5); WBC 16.3 thou/uL (4.0-11.0)
[2019-08-11 04:40] LABS: ALBUMIN 2.5 g/dL (3.4-5.0); CALCIUM 8.3 mg/dL (8.5-10.1); CREATININE 1.1 mg/dL (0.6-1.3); POTASSIUM 3.8 mmol/L (3.5-5.1); TOTAL BILIRUBIN 0.9 mg/dL (<0.1-1.0); TOTAL PROTEIN 6.1 g/dL (6.4-8.2)
--- NOTE | 2019-08-11 04:54 | NUR ---
PT ALERT AND ORIENTED. FORGETFUL. DEMENTIA. PT SLEPT MOST OF SHIFT. DENIES PAIN N/V. MEDS GIVEN PER EMAR. ISOLATION FOR MRSA IN PLACE. Q2 TURN. INCONTINENT. FALL PRECAUTION IN PLACE. CALL LIGHT WITHIN REACH. HOURLY ROUNDINGS MADE. POSSIBLE DC TODAY. WILL CONTINUE TO MONITOR.
--- NOTE | 2019-08-11 05:02 | NUR ---
PT ALERT AND ORIENTED. SOMETIMES FORGETFUL. VSS ON RA. ASSESSMENT DOCUMENTED. PT SLEPT MOST OF SHIFT. MEDS GIVEN PER EMAR. TRAMADOL GIVEN FOR PAIN X1 THIS SHIFT. ABD DISTENDED. PT COMPLAINED OF NOT FEELING WELL. BLOOD GLUCOSE CHECKED AND WAS FINE. TEMP WAS FINE. PT DID NOT THROW UP THIS SHIFT. WENT BACK TO SLEEP AFTERWARDS. FALL PRECAUTION IN PLACE. CALL LIGHT WITHIN REACH. HOURLY ROUNDINGS MADE. WILL CONTINUE TO MONITOR.
[2019-08-11 05:55] LABS: ABSOLUTE MONOCYTES 0.8 thou/uL (0.0-1.2); ABSOLUTE NEUTROPHILS 14.5 thou/uL (1.6-8.1); ANISOCYTOSIS 1+; PLATELET ESTIMATE ADEQUATE; POIKILOCYTOSIS 1+
[2019-08-11 09:22] VITALS: BP 141/66
--- NOTE | 2019-08-11 10:34 | NUR ---
ASSUMED CARE OF PT AROUND 0730 THIS AM. REFER TO ASSESSMENT. PT DENIES N/V THIS AM. POOR APPETITE WITH BREAKFAST. PT REPORTS A COUPLE BOWEL MOVEMENTS YESTERDAY AND DENIES ANY TODAY. VSS. AT BEDSIDE. NO OTHER CONCERNS AT THIS TIME.CLWR. WCTM.
[2019-08-11 16:31] VITALS: BP 132/67
--- NOTE | 2019-08-11 17:04 | NUR ---
PT NOT PROGRESSING TOWARDS GOALS THIS SHIFT. POOR APPETITE THEN CHANGED TO NPO PER SURGERY. REPEATED CT TO ABDOMEN, REFER TO RESULTS. SURGEON DISCUSSED POSSIBILITY OF TAKING TO SURGERY, ALTHOUGH NO ORDERS AT THIS TIME. PT HAS C/O ABDOMINAL PAIN WITH LIGHT PALPATION. NO C/O N/V THIS SHIFT. AT BEDSIDE INTERMITTENTLY THROUGHOUT SHIFT. NO OTHER CONCERNS AT THIS TIME. CLWR. WCTM.
[2019-08-11 19:30] VITALS: BP 138/72
[2019-08-12 03:57] LABS: HEMATOCRIT 38.9 % (42.0-52.0); MCH 29.4 pg (26.0-34.0); MCHC 33.5 g/dL (28.0-37.0); MCV 87.7 fL (80.0-100.0); MPV 9.1 fl. (7.2-11.1); RBC 4.43 mil/uL (4.50-6.00); RDW-CV 14.2 % (10.5-14.5); WBC 11.1 thou/uL (4.0-11.0)
[2019-08-12 04:17] LABS: ALBUMIN 2.4 g/dL (3.4-5.0); CALCIUM 8.4 mg/dL (8.5-10.1); MAGNESIUM 1.9 mg/dL (1.8-2.4); PHOSPHORUS* 2.7 mg/dL (2.5-4.9); POTASSIUM 3.8 mmol/L (3.5-5.1)
--- NOTE | 2019-08-12 05:25 | NUR ---
PT ALERT AND ORIENTED. FORGETFUL. FALL PRECAUTION IN PLACE. VSS ON RA. MEDS GIVEN PER EMAR. PT SLEPT WELL THIS SHIFT. NPO. SURGERY TODAY, NO DESIGNATED TIME YET. PT PHILLIP SCANNED AND HAD >400ML. WILL MSG DANILO CABELLO FOR STRAIGHT CATH ORDERS, IF UNABLE TO VOID. CALL LIGHT WITHIN REACH. HOURLY ROUNDINGS MADE. WILL CONTINUE TO MONITOR.
[2019-08-12 08:00] VITALS: BP 142/63
--- NOTE | 2019-08-12 12:18 | CON ---
[address] [address] CONSULTATION Name: ALEXANDER AN Room: [address] IN M.R.#: [id number] Admission: 08/07/19 Attend Phys: Terry Eden MD Discharge: Date of : 42 Report #: [id number] THIS REPORT FOR: //name// CC: Terry Lu DATE OF SERVICE: 08/11/2019 INFECTIOUS DISEASE CONSULTATION ATTENDING PHYSICIAN: Terry Eden MD REASON FOR EVALUATION: Acute diverticulitis complicated by nonresolution in spite of broad spectrum antibiotics with concern about possible compromised bowel perforation. HISTORY OF PRESENT ILLNESS: Chart reviewed, patient examined. This is a 79-year-old with fairly significant medical history of diabetes mellitus, has cardiomyopathy who presented on of this month after about a 3-day history of increasing abdominal pain somewhat generalized. Evaluation suggested acute diverticulitis with questionable fistulous tract. Certainly had phlegmon and started empirically on therapy with ciprofloxacin and metronidazole. He continues to have extreme tenderness. He is more distended. He has not required NG decompression to this point. He is lethargic, although he is not overtly encephalopathic. He has been afebrile and hemodynamics have been generally stable. Followup CT is pending. ALLERGIES: LISTED TO PENICILLINS. CURRENT MEDICATIONS: Include lisinopril, gabapentin, triamcinolone, venlafaxine, nifedipine, tramadol, enoxaparin, metronidazole, Flagyl, pantoprazole. PAST MEDICAL HISTORY: As described above, history of diabetes mellitus type 2, hypertension, cardiomyopathy, history of congestive heart failure, previous "mini strokes," atrial fibrillation, does have a pacemaker in place, history of hemorrhoidectomy, a recent colonoscopy showed some polyps. SOCIAL HISTORY: Former smoker. No ethanol. No illicit drug use. FAMILY HISTORY: Noncontributory. REVIEW OF SYSTEMS: Denies any significant pulmonary-related complaints at this point. Otherwise, unremarkable 10-point review of systems with exception of the above [place] [address] CONSULTATION Name: ALEXANDER AN Room: [address]#: [id number] Admission: 08/07/19 Attend Phys: Terry Eden MD Discharge: Date of : 42 Report #: [id number] PHYSICAL EXAMINATION: GENERAL: He is lethargic, in [id number]-[id number] distress, appears somewhat chronically ill. VITAL SIGNS: Temperature 97.8, pulse 60, respirations 18, blood pressure 141/66. SKIN: Warm, dry, no rashes. HEENT: Normocephalic. Extraocular muscles intact. NECK: Supple. LUNGS: Diminished breath sounds. Few scattered crackles at the bases. HEART: Regular. I do not appreciate any murmur. ABDOMEN: Markedly distended and is quite firm, tender to percussion. RECTAL: Deferred. LABORATORY DATA: Most recent CBC: White count of 16.3, H and H 13.8 and 41.0, platelets of 309. Electrolytes: Sodium 135, potassium 3.8, chloride 101, bicarbonate is 23, anion gap of 11, BUN and creatinine 16 and 1.1, glucose of 157. Albumin of 2.5, total protein of 6.1. Blood cultures are sterile thus far from the . Initial CT of the abdomen and pelvis on the , a phlegmonous inflammation near the midline on the left, felt to be acute diverticulitis with adjacent small bowel in this location demonstrates moderate fluid distention mucosal edema, question of a small fistulous tract, mild reactive ascites, partial small bowel obstruction. ASSESSMENT: Acute diverticulitis. I think the clinical pictures suggest some compromise of the bowel with perforation. We will continue empiric therapy, we will adjust treatment. Noted followup CT imaging is pending, not that certain. We will get by without surgical intervention at this point. Discussed with the patient, we will add incentive spirometry. Certainly at risk for nosocomial related infectious complications. Monitor expectantly. <ELECTRONICALLY SIGNED> By: Alli Peraza MD 08/12/19 1218 [id number] Peraza MD /nt
--- NOTE | 2019-08-12 12:24 | NUR ---
OSTOMY NURSE- CONTACTED EARLIER TO SEE PATIENT FOR PRE-OP OSTOMY TEACHING AND STOMA MARKING. PATIENT SCHEDULED FOR EXPLORATORY LAPAROTOMY, SIGMOIDECTOMY, POSSIBLE SMALL BOWEL RESECTION & CREATION OF OSTOMY LATER THIS AFTERNOON. RECENT CT SCAN REVEALED PERFORATED SIGMOID DIVERTICULITIS WITH PNEUMOPERITONEUM. PATIENT DENIES ANY HISTORY OF DIVERTICULITIS OR PRIOR ABDOMINAL SURGERY. HE LIVES IN [place] WITH HIS , WHO WILL BE HERE SHORTLY, BEFORE HE GOES TO SURGERY. HIS ABDOMEN IS VERY DISTENDED AND FIRM, SO UNABLE TO IDENTIFY ANY SIGNIFICANT CREASES OR FOLDS. STOMA SITE MARKED ON LEFT ABDOMEN WITH PERMANENT MARKER, IN A LOCATION BELOW HIS USUAL CLOTHING WAISTLINE, BUT IN AN AREA THAT HE IS ABLE TO VISUALIZE AND REACH. IF ILEOSTOMY INDICATED, SAME LOCATION ON RIGHT ABDOMEN COULD BE USED (LEFT NOTE ON CHART FOR DR BRAMBILA). BRIEFLY EXPLAINED DIVERTICULITIS AND COLOSTOMY CREATION TO PATIENT. HE LISTENED FAIRLY ATTENTIVELY AND ASKED QUESTIONS, BUT IS MORE INTERESTED IN "GETTING RID OF THIS PAIN FIRST". LEFT COLOSTOMY TEACHING BOOKLET AT BEDSIDE FOR , AND WILL FOLLOW-UP WITH PATIENT POST-OP FOR ADDITIONAL TEACHING.
--- NOTE | 2019-08-12 13:03 | NUR ---
WOUND NURSE: RECEIVED WOUND CONSULT ON THIS PATIENT, BUT PATIENT IS OSTOMY MARKING CONSULT. KRISTI BEVERLY RN HAS ALREADY SEEN PATIENT TODAY. PATIENT NOT SEEN BY THIS NURSE.
[2019-08-12 13:43] VITALS: BP 142/63
--- NOTE | 2019-08-12 14:22 | NUR ---
OSTOMY NURSE - PATIENT REMAINS IN ICU, BUT ALERT & ORIENTED. HE HAS UNDERGONE 4 SURGICAL PROCEDURES, INCLUDING LAPAROSCOPIC R HEMICOLECTOMY WITH ILEOCOLONIC ANASTAMOSIS ON 07/27/19, EXPLORATORY LAPAROTOMY WITH OVERSEWING SMALL BOWEL PERFORATION ON 07/30/19, EXPLORATORY LAPAROTOMY WITH END ILEOSTOMY, G-TUBE, & AbTHERA PLACEMENT ON 08/09, & THEN ABDOMINAL WASHOUT WITH CLOSURE AND PLACEMENT OF INCISIONAL VAC ON 08/11/19. PER NURSES, DR BRAMBILA IS PLANNING TO CHANGE INCISIONAL VAC DRESSING TOMORROW, AND HAS REQUESTED RHEA, WOUND CARE NURSE TO ASSIST. SHE IS NOT HERE TODAY, BUT HAS BEEN NOTIFIED AND WILL PLAN TO ASSIST. ABDOMEN NON-DISTENDED, SOFT WITH INCISIONAL VAC INTACT TO MIDLINE INCISION WITH SMALL AMOUNT OF SEROSANGUINEOUS DRAINAGE IN CANISTER, REMAINS TO 125 mm Hg CONTINUOUS. EUNICE DRAIN TO RLQ WITH MODERATE AMOUNT OF LIGHT BROWN THICKER BILE-TYPE DRAINAGE, LLQ EUNICE WITH MODERATE AMOUNT OF YELLOW SEROUS DRAINAGE.POUCH INTACT TO ILEOSTOMY RIGHT ABDOMEN, NO STOOL. STOMA PINK, MOIST, SLIGHTLY EDEMATOUS. TWO PIECE OSTOMY BARRIER OVERLYING THE VAC DRAPE, SO UNABLE TO CHANGE OSTOMY POUCH AT THIS TIME. SUPPLIES AT BEDSIDE FOR NURSES/RHEA TO ASSIST WITH REAPPLYING POUCH AFER VAC DRESSING CHANGED. INSTRUCTED PATIENT ON ILEOSTOMY, INCLUDING OVERVIEW OF EMPTYING AND CHANGING POUCH, DIETARY IMPLICATIONS, ETC. HIS MOM HAD A COLOSTOMY FOR OVER 25 YEARS, DUE TO COLON CANCER, AND HE ASSISTED HER WITH CARE. HE LIVES ALONE AND DOES NOT THINK THAT HE WILL HAVE ANYONE HELPING HIM AT HOME. WILL NEED HOME HEALTH. ENROLLED IN [employer] STARTS PROGRAM WITH HIS PERMISSION. LEFT ILEOSTOMY TEACHING PACKET, INSTRUCTIONS AND SUPPLIES AT BEDSIDE. WILL PLAN TO FOLLOW-UP WITH ADDITIONAL TEACHING PRIOR TO DISCHARGE.
--- NOTE | 2019-08-12 16:02 | CON ---
[address] [address] CONSULTATION Name: ALEXANDER AN Room: [address] IN M.R.#: [id number] Admission: 08/07/19 Attend Phys: Terry Eden MD Discharge: Date of : 42 Report #: [id number] THIS REPORT FOR: //name// CC: Terry Lu MD DICTATED BY: Sudha Barcenas [facility] DATE OF SERVICE: 08/10/2019 PRIMARY CARE PHYSICIAN: Chalino Lu MD Please note at the time of this dictation, the patient was seen and physically examined by myself. REASON FOR CONSULTATION: Abdominal pain, diverticulitis. HISTORY OF PRESENT ILLNESS: This is a 79-year-old male, who presented to the Emergency Room after having abdominal pain, nausea, vomiting and diarrhea for 3 days prior to his admission. He states he felt like he was having significant lower abdominal pain that radiates across into his left lower. He was not wanting to eat and he was having a lot of watery diarrhea. The patient did undergo a colonoscopy with Dr. Jana avendano on 07/06. He was noted to have diverticulosis in the sigmoid colon and internal hemorrhoids. The patient states that he has not noted any bright red blood or any melena in his stool. He was complaining of significant abdominal discomfort and somewhat fullness, in which he was sent to the Emergency Room by his PCP. It was noted on abdominal CT that he had acute severe phlegmonous inflammation in the central pelvic mesentery arising from an inflamed sigmoid diverticulum with possible fistulous tract communicating to an edematous small bowel. He had moderate small bowel distention and partial small bowel obstruction was suspected at that time. The patient was started on antibiotics, Cipro and Flagyl, and his symptoms seemed to have somewhat improved. However, he is complaining this morning of more abdominal distention. He underwent an abdominal x-ray this morning that showed generalized small bowel dilatation concerning for distal small bowel obstruction. He denies any nausea or vomiting. At this time, the only thing he complains about is his abdominal distention. ALLERGIES: PENICILLIN. MEDICATIONS: From home include ramipril, Neurontin, tramadol, , Eliquis, Glucophage, Crestor, and Procardia. 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 PAST SURGICAL HISTORY: Hemorrhoidectomy and nasal surgery. FAMILY HISTORY: Noncontributory. SOCIAL HISTORY: Past history of tobacco use. No alcohol use. REVIEW OF SYSTEMS: Twelve-point review of systems is essentially negative except what is mentioned in the HPI. PHYSICAL EXAMINATION: VITAL SIGNS: Temperature 36.7, pulse 81, respirations 19, blood pressure 190/77. HEART: Regular rate and rhythm. LUNGS: Diminished, but clear. ABDOMEN: Distended, but soft, hypoactive bowel sounds. LABORATORY DATA: Hemoglobin is 15, white count is 9.8, platelets 276. GFR is 65. CT on admission as noted in the HPI. Recent abdominal x-ray done today showed generalized small bowel dilatation concerning for distal small bowel obstruction. IMPRESSION: 1. Abdominal pain. 2. Diverticulitis with perforation. 3. Small bowel obstruction. PLAN: 1. Anticoagulant therapy, Eliquis secondary to atrial fibrillation and mini stroke. We will continue his current antibiotic regimen. 2. Encourage the patient to be up. 3. We will try Dulcolax suppository. 4. If he begins to have nausea and vomiting, may need to consider an NG tube. Thank you for allowing us to participate in this patient's care. Please do not hesitate to call with any questions in regard to this consult. <ELECTRONICALLY SIGNED> By: Samson Goldman MD 08/12/19 1602 [id number] Goldman MD /nt
--- NOTE | 2019-08-12 17:31 | NUR ---
PATIENT IN SURGERY AT THIS TIME. PATIENT HAD COMPLAINTS OF CONTINUED ABDOMINAL PAIN AND DISTENTION. PATIENT HAS BEEN UP STANDBY ASSIST WITH CANE.
[2019-08-12 20:10] LABS: BE -3.8 mmol/L (-2 to +3); PO2 81.3 mmHg (75.0-100.0)
[2019-08-12 20:13] LABS: pH 7.275 (7.340-7.450)
[2019-08-12 20:17] LABS: HEMATOCRIT 42.9 % (42.0-52.0); HEMOGLOBIN 14.2 gm/dL (14.0-18.0); MCH 29.7 pg (26.0-34.0); MCV 90.2 fL (80.0-100.0); MPV 8.6 fl. (7.2-11.1); RBC 4.76 mil/uL (4.50-6.00); RDW-CV 14.6 % (10.5-14.5); WBC 19.1 thou/uL (4.0-11.0)
[2019-08-12 21:30] VITALS: BP 156/54
--- NOTE | 2019-08-12 21:30 | NUR ---
PT ARRIVED TO ROOM PER BED FROM PACU. SLEEPING AT THIS TIME. TELEMETRY APPLIED SHOWING A-PACED RHYTHM. NG TO LIS WITH GREEN BILE, IRRIGATES EASLILY. BIPAP ON AT 35% FIO2. LT ABD COLOSTOMY NOTED WITHOUT DRAINAGE, PINK, NO BLEEDING. RT ABD JULIA WOUND VAC NOTED. HAMILTON PATENT WITH SM AMT DK URINE. FOR SAFETY AND TO PREVENT LINES FROM BEING FULLED PT HAS MITTENS ON AND SITTER AT BEDSIDE. WILL CONT TO MONITOR AND ASSIST NEEDED.
[2019-08-13] VITALS: BP 124/55
[2019-08-13 04:00] VITALS: BP 124/57
[2019-08-13 04:57] LABS: ABSOLUTE LYMPHOCYTES 0.5 thou/uL (0.8-5.3); ABSOLUTE MONOCYTES 0.8 thou/uL (0.0-1.2); ABSOLUTE NEUTROPHILS 15.1 thou/uL (1.6-8.1); BASOPHILS 0.1 %; HEMOGLOBIN 13.1 gm/dL (14.0-18.0); LYMPHOCYTES 3.3 %; MCH 29.3 pg (26.0-34.0); MCHC 32.9 g/dL (28.0-37.0); MCV 88.9 fL (80.0-100.0); MPV 8.7 fl. (7.2-11.1); NUCLEATED RBCS 0 /100WBC; PLATELET COUNT* 293 thou/uL (150-400); POLYS 91.6 %; RBC 4.49 mil/uL (4.50-6.00); WBC 16.5 thou/uL (4.0-11.0)
[2019-08-13 05:20] LABS: ALBUMIN 2.1 g/dL (3.4-5.0); CALCIUM 7.9 mg/dL (8.5-10.1); CREATININE 1.1 mg/dL (0.6-1.3); POTASSIUM 4.6 mmol/L (3.5-5.1); TOTAL BILIRUBIN 0.4 mg/dL (<0.1-1.0); TOTAL PROTEIN 5.5 g/dL (6.4-8.2)
[2019-08-13 05:25] LABS: PHOSPHORUS* 3.8 mg/dL (2.5-4.9)
--- NOTE | 2019-08-13 06:30 | NUR ---
MUCH IMPROVEMENT THIS MORNING. PT ALERT AND ASKING QUESTIONS. MITTENS REMOVED. NOT ATTEMPTING TO PULL AT ANY TUBES. ASSISTING WITH REPOSITIONING IN BED. NO CHANGE IN ABD DRSG OR WOUND VAC. IV PAIN MED GIVEN X1, STATES HE IS NOT HAVING ANY PAIN NOW. BIPAP REMOVED AND PLACED ON 3L/NC. NG CLAMPED ORDERED. TELEMETRY CONT TO SHOW V PACED.
[2019-08-13 08:40] LABS: BE -0.1 mmol/L (-2 to +3); PCO2 40.8 mmHg (35.0-45.0); PO2 90.3 mmHg (75.0-100.0); pH 7.399 (7.340-7.450)
[2019-08-13 11:36] VITALS: BP 137/58
--- NOTE | 2019-08-13 19:06 | NUR ---
PATINET RESTING IN BED. VSS. PATINET RESTING IN BED. HOULRY ROUNDING COMPLETED FOR PATIENT SAFETY.
[2019-08-13 20:00] VITALS: BP 130/54
--- NOTE | 2019-08-14 02:40 | NUR ---
PT LETHARGIC ORIENTED. TURN Q 2 HRS. NG CLAMPED. HYDROMORPHONE GIVEN INITALLY PT UNCOMFORTABLE WITH FEET AT END OF BED. PT REPOSITIONED. PT RESTING QUIETLY. TELEMETRY SHOWS SR. INITALLY D5 1/2 NS AT 75MLS/HR WITH MEROPENEM. PPN HANGING ON IV POLE. PPN SPIKED AND STARTED AT 2030. ABD DRSG WITH SM DRIED BLOOD 2.5X 1.2 CM. SMALL WOUND VAC IN PLACE. PT STATED IT HURT TO COUGH. INSTRUCTIONS ON SPLINTING W PILLOW GIVEN. WCTM
[2019-08-14 04:00] VITALS: BP 152/62
[2019-08-14 05:24] LABS: ABSOLUTE BASOPHILS 0.1 thou/uL (0.0-0.2); ABSOLUTE EOSINOPHILS 0.3 thou/uL (0.0-0.7); ABSOLUTE LYMPHOCYTES 0.9 thou/uL (0.8-5.3); ABSOLUTE MONOCYTES 0.9 thou/uL (0.0-1.2); ABSOLUTE NEUTROPHILS 10.1 thou/uL (1.6-8.1); BASOPHILS 1.2 %; EOSINOPHILS 2.8 %; HEMATOCRIT 38.4 % (42.0-52.0); HEMOGLOBIN 12.9 gm/dL (14.0-18.0); LYMPHOCYTES 7.5 %; MCH 29.7 pg (26.0-34.0); MCHC 33.7 g/dL (28.0-37.0); MCV 88.1 fL (80.0-100.0); MONOCYTES 7.1 %; MPV 8.1 fl. (7.2-11.1); NUCLEATED RBCS 0 /100WBC; PLATELET COUNT* 304 thou/uL (150-400); POLYS 81.4 %; RBC 4.36 mil/uL (4.50-6.00); RDW-CV 14.8 % (10.5-14.5); WBC 12.4 thou/uL (4.0-11.0)
[2019-08-14 05:37] LABS: ALBUMIN 2.1 g/dL (3.4-5.0); CALCIUM 7.9 mg/dL (8.5-10.1); CREATININE 1.1 mg/dL (0.6-1.3); MAGNESIUM 2.1 mg/dL (1.8-2.4); PHOSPHORUS* 2.3 mg/dL (2.5-4.9); POTASSIUM 3.9 mmol/L (3.5-5.1)
[2019-08-14 05:45] LABS: ALBUMIN 2.1 g/dL (3.4-5.0); POTASSIUM 3.9 mmol/L (3.5-5.1); TOTAL BILIRUBIN 0.5 mg/dL (<0.1-1.0); TOTAL PROTEIN 5.7 g/dL (6.4-8.2)
[2019-08-14 05:55] LABS: PREALBUMIN 10.8 mg/dL (18.0-35.7)
[2019-08-14 07:50] VITALS: BP 142/60
--- NOTE | 2019-08-14 08:36 | NUR ---
ASSUMED CARE OF PT AT 0730. PT LYING IN BED. A&0X4, INTERMITTENT FORGETFULNESS NOTED, COOPERATIVE AND PLEASANT. PT DENIES ANY PAIN AT THIS TIME, TREATED BY NOC SHIFT. MED SURG STATUS. ON RA SAT 93%. DENIES ANY SHORTNESS OF BREATH. RIGHT NARE NG CLAMPED. COLOSTOMY TO DEPENDENT DRAINAGE- NO OUTPUT NOTED. ABDOMEN NOTED TO BE DISTENDED, ROUND AND SOMEWHAT FIRM, ACTIVE BOWEL SOUNDS NOTED. PPN INFUSING ORDERED. PT UP WITH 1-2 ASSIST. RIGHT ABDOMINAL JULIA DRESSING WOUND VAC NOTED. NPO, MEDICATIONS PER MAR, CRUSHED AND PLACED THROUGH NG. PT GOAL FOR TODAY IS PAIN MGMT, INCREASE ACTIVITY AND MONITOR RESIDUAL. SURGERY CONSULT IN PLACE. AM ASSESSMENT CHARTED. MEDICATIONS PER NOV. PT REPOSITIONED EVERY 2 HOURS FOR COMFORT. HOURLY ROUNDING OBSERVED. BED IN LOW POSITION. BED ALARM IN PLACE. FALL PRECAUTIONS IN PLACE. CALL LIGHT WITHIN REACH. WILL CONTINUE PLAN OF CARE.
[2019-08-14 12:48] VITALS: BP 155/62
[2019-08-14 16:00] VITALS: BP 149/57
--- NOTE | 2019-08-14 17:02 | NUR ---
PT SLOWLY PROGRESSING TOWARDS GOALS. PT WORKED WITH PT AND OT TODAY. PER PHYSICAL THERAPIST- NG REPORTED TO COME OUT DURING THERAPY WHILE AMBULATING. SURGERY NOTIFIED. PER DR MCKEON- OK TO LEAVE NG OUT AND OK FOR SMALL SIPS OF CLEAR LIQUIDS. PT SAT UP IN RECLINER THIS AFTERNOON- TOLERATED WELL. TOLERATED THERAPIES WELL. PT DENIES ANY PAIN OR SHORTNESS OF BREATH THIS AFTERNOON. MED SURG STATUS. ON RA SAT UPPER 90'S. COLOSTOMY TO DEPENDENT DRAINAGE. JULIA DRESSING IN PLACE TO ABDOMEN. PPN INFUSING AT 75ML/HR. MEDICATIONS PER NOV. PT REPOSITIONED EVERY 2 HOURS FOR COMFORT. HOURLY ROUNDING OBSERVED. BED IN LOW POSITION. BED/CHAIR ALARM IN PLACE. FALL PRECAUTIONS IN PLACE. CALL LIGHT WITHIN REACH. WILL CONTINUE PLAN OF CARE.
--- NOTE | 2019-08-14 18:17 | NUR ---
PT TRANSFERRED TO ROOM 117 VIA BED AT APPROXIMATELY 1815. REPORT GIVEN TO SONIA VICTOR. PT TRANSFERRED WITH ALL BELONGINGS AND CHART.
[2019-08-14 19:30] VITALS: BP 194/81
--- NOTE | 2019-08-14 19:37 | NUR ---
PATIENT ARRIVED TO FLOOR AT 1820. ALL SAFETY MEASURES MAINTAINED. PATIENT REQUESTS RN CALL HIS TO NOTIFY OF ROOM CHANGE. NOTIFIED. PATIENT ORIENTED TO ROOM AND INSTRUCTED TO USE CALL LIGHT IF NEEDED. BED ALARM ON. PATIENT DENIES FURTHER QUESTIONS/ NEEDS AT THIS TIME.
[2019-08-15] VITALS: BP 168/72
[2019-08-15 04:00] VITALS: BP 153/69
[2019-08-15 05:06] LABS: ABSOLUTE EOSINOPHILS 0.3 thou/uL (0.0-0.7); ABSOLUTE LYMPHOCYTES 1.2 thou/uL (0.8-5.3); ABSOLUTE MONOCYTES 0.9 thou/uL (0.0-1.2); ABSOLUTE NEUTROPHILS 11.2 thou/uL (1.6-8.1); BASOPHILS 0.3 %; EOSINOPHILS 2.1 %; HEMATOCRIT 41.9 % (42.0-52.0); LYMPHOCYTES 9.1 %; MCH 29.4 pg (26.0-34.0); MCHC 33.5 g/dL (28.0-37.0); MCV 87.9 fL (80.0-100.0); MONOCYTES 6.5 %; MPV 8.5 fl. (7.2-11.1); NUCLEATED RBCS 0 /100WBC; RBC 4.77 mil/uL (4.50-6.00); RDW-CV 14.6 % (10.5-14.5); WBC 13.6 thou/uL (4.0-11.0)
[2019-08-15 05:18] LABS: PLATELET COUNT* 402 thou/uL (150-400)
[2019-08-15 05:19] LABS: PREALBUMIN 13.2 mg/dL (18.0-35.7)
[2019-08-15 05:24] LABS: ALBUMIN 2.4 g/dL (3.4-5.0); CALCIUM 8.4 mg/dL (8.5-10.1); CREATININE 0.9 mg/dL (0.6-1.3); PHOSPHORUS* 2.1 mg/dL (2.5-4.9); POTASSIUM 4.1 mmol/L (3.5-5.1)
[2019-08-15 05:27] LABS: ALBUMIN 2.3 g/dL (3.4-5.0); CALCIUM 8.4 mg/dL (8.5-10.1); CREATININE 0.8 mg/dL (0.6-1.3); POTASSIUM 4.1 mmol/L (3.5-5.1); TOTAL BILIRUBIN 0.7 mg/dL (<0.1-1.0); TOTAL PROTEIN 6.5 g/dL (6.4-8.2)
--- NOTE | 2019-08-15 07:02 | NUR ---
Oriented x 4 but drowsy. He is cooperative. He does need to use the walker when he gets up. Colostomy has not had very much in it. RLQ with JULIA woundvac. Pain meds x 2. He has slept well.
[2019-08-15 08:00] VITALS: BP 148/90
[2019-08-15 16:00] VITALS: BP 156/66
--- NOTE | 2019-08-15 16:15 | NUR ---
OSTOMY NURSE - PATIENT NOW 3 DAYS POST-OP FOLLOWING EXPLORATORY LAPAROTOMY, SIGMOIDECTOMY & END COLOSTOMY ON 08/12/19. HAD CALLED THIS AM AND TALKED TO NURSE, TO REQUEST HERE FOR TEACHING. SHE WAS UNABLE TO REACH , BUT THOUGHT THAT PATIENT HAD ADVISED HER. NOT PRESENT, CALLED HER AT HOME, STATES SHE CANNOT COME IN TODAY. EXPLAINED MY ROLE AND PLANS FOR OSTOMY TEACHING, AND SHE STATES "HE WILL HAVE HOME HEALTH NURSES TO TAKE CARE OF THAT". REINFORCED INTERMITTENT NATURE OF HOME HEALTH VISITS, AND THAT PATIENT WILL BE RESPONSIBLE FOR MANAGING, WITH CONTINUED TEACHING & MONITORING PER HOME HEALTH. ABDOMEN MUCH LESS DISTENDED, SOFTER - PATIENT REPORTS FEELING MUCH BETTER THAN PRE-OP. JULIA DRESSING INTACT OVER ABDOMINAL INCISION. COLOSTOMY POUCH INTACT, NO STOOL. STOMA BEEFY RED, MOIST, PROTRUDES SLIGHTLY, MINIMAL EDEMA. MUCOCUTANEOUS INCISION WELL APPROXIMATED, PERISTOMAL SKIN INTACT. EXPLAINED POUCH EMPTYING AND POUCH CHANGE TO PATIENT - WILL NEED REINFORCEMENT FROM NURSES. ENROLLED IN [employer] STARTS PROGRAM WITH HIS PERMISSION. COLOSTOMY TEACHING PACKET AND SUPPLIES AT BEDSIDE. WILL NEED HOME HEALTH AT DISCHARGE.
--- NOTE | 2019-08-15 18:04 | NUR ---
PT UP IN CHAIR MULTIPLE TIMES THROUGHOUT SHIFT. PT DENIES PAIN. PPN INFUSING. WOUND VAC WORKING PROPERLY. COLOSTOMY DRAINING SM OUTPUT OF LIQUID STOOL. VOIDING PER URINAL
[2019-08-15 21:00] VITALS: BP 137/65
[2019-08-16 00:19] VITALS: BP 136/63
[2019-08-16 04:00] VITALS: BP 172/74
[2019-08-16 04:16] LABS: ABSOLUTE BASOPHILS 0.1 thou/uL (0.0-0.2); ABSOLUTE EOSINOPHILS 0.3 thou/uL (0.0-0.7); ABSOLUTE LYMPHOCYTES 1.2 thou/uL (0.8-5.3); ABSOLUTE MONOCYTES 0.8 thou/uL (0.0-1.2); ABSOLUTE NEUTROPHILS 9.3 thou/uL (1.6-8.1); BASOPHILS 0.7 %; EOSINOPHILS 2.6 %; HEMATOCRIT 42.6 % (42.0-52.0); HEMOGLOBIN 14.3 gm/dL (14.0-18.0); LYMPHOCYTES 10.3 %; MCH 29.6 pg (26.0-34.0); MCHC 33.5 g/dL (28.0-37.0); MCV 88.3 fL (80.0-100.0); MONOCYTES 6.5 %; MPV 8.3 fl. (7.2-11.1); NUCLEATED RBCS 0 /100WBC; PLATELET COUNT* 393 thou/uL (150-400); POLYS 79.9 %; RBC 4.82 mil/uL (4.50-6.00); RDW-CV 14.5 % (10.5-14.5); WBC 11.6 thou/uL (4.0-11.0)
[2019-08-16 04:36] LABS: CALCIUM 8.3 mg/dL (8.5-10.1); CREATININE 0.8 mg/dL (0.6-1.3); POTASSIUM 4.3 mmol/L (3.5-5.1)
[2019-08-16 05:24] LABS: ALBUMIN 2.4 g/dL (3.4-5.0); CALCIUM 8.4 mg/dL (8.5-10.1); CREATININE 0.8 mg/dL (0.6-1.3); PHOSPHORUS* 2.7 mg/dL (2.5-4.9); POTASSIUM 4.3 mmol/L (3.5-5.1)
[2019-08-16 07:30] VITALS: BP 155/81
--- NOTE | 2019-08-16 07:56 | NUR ---
Oriented x 4,he is drowsy but does awaken easily. He has an abdominal JULIA woundvac dressing to his RLQ which is intact. Yesterday the ostomy nurse saw him and changed his dressing and it hasn't had any drainage since that dressing change. He does have bowel sounds but abdomen is distended. He denies pain or nausea. Vitals are satble. He has slept well.
--- NOTE | 2019-08-16 12:10 | OP ---
[facility] [place] [address] OPERATIVE REPORT Name: ALEXANDER AN Room: [address] IN M.R.#: [id number] Admission: 08/07/19 Attend Phys: Terry Eden MD Discharge: Date of : 42 Report #: [id number] THIS REPORT FOR: //name// CC: Terry Lu DATE OF SERVICE: 08/12/2019 PROCEDURES PERFORMED: 1. Exploratory laparotomy. 2. Sigmoidectomy. 3. End colostomy. PREOPERATIVE DIAGNOSES: 1. Perforated diverticulitis. 2. Diffuse peritonitis. 3. Intra-abdominal abscess. 4. Pneumoperitoneum. 5. Small-bowel obstruction. POSTOPERATIVE DIAGNOSES: 1. Perforated diverticulitis. 2. Diffuse peritonitis. 3. Intra-abdominal abscess. 4. Pneumoperitoneum. 5. Small-bowel obstruction. SURGEONS: 1. Dr. James. 2. Dr. Yvonne Gutiérrez. INDUSTRIAL STAFF NURSE: None. ANESTHESIA: General. ESTIMATED BLOOD LOSS: Less than 30 mL. URINE OUTPUT: Please see anesthesia record. SPECIMENS: Sigmoid colon. FINDINGS: 1. The patient had a pelvic abscess consistent with preoperative CT scanning. 2. Small bowel was matted to pelvic abscess and colon. We did breakaway easily. 3. Sigmoid colon mass consistent with preoperative findings of inflammation. [facility] [place] [address] OPERATIVE REPORT Name: ALEXANDER AN Room: [address]#: [id number] Admission: 08/07/19 Attend Phys: Terry Eden MD Discharge: Date of : 42 Report #: [id number] INDICATIONS FOR THE PROCEDURE: The patient is a very pleasant gentleman who presented with diverticulitis with a phlegmon within the mesocolon. He was placed on bowel rest and IV antibiotics. On hospital day #4, the patient did appear to be worsening. He had worsening pain on abdominal exam. The patient was taken for a repeat CT scan, which demonstrated worsening diverticulitis, perforation with pneumoperitoneum, and abscess. The patient's physical exam was now diffusely peritonitic and he was miserable. We did discuss going to surgery and the influence of surgery now that he would require a colostomy, most likely. The patient was eager to go to surgery, he reported that he felt miserable and in fact that when I walked into the room, the first thing he said was "can we go to the surgery?" The risks, benefits, and alternatives of the procedure were discussed with the patient and his family. The risks discussed included but were not limited to the risk of bleeding, infection, he knew it would be an open procedure, damage to bilateral ureters, damage to any intra-abdominal nearby anatomy, he understands he would be getting a bowel resection, he understands that he will be getting an ostomy. We discussed postoperative complications such as ongoing infection and abscess, ostomy failure, need for further surgery through the hospitalization, anesthesia (cardiac, pulmonary, neurologic-type complications), and . The patient had the opportunity to ask questions. All questions were answered to the best of my ability. At the end of the discussion, the patient did wish to proceed with surgery. DESCRIPTION OF PROCEDURE: After informed consent was obtained, as above, the patient was taken to the operating room and placed in the supine position. General anesthesia was induced. Preprocedure antibiotics were administered and the anterior abdomen was prepped and draped in the usual sterile fashion and a timeout was performed. The procedure began by making a midline infraumbilical incision and dissecting down to the peritoneal cavity using electrocautery. Peritoneal cavity was then explored. The patient did have a mass in the pelvis that was deeply palpated. Dr. David Gutiérrez and myself were operating together. The patient had small bowel that also adhesed down into the pelvis through the abscess and sigmoid colon. The small bowel was able to be bluntly dissected away carefully. The abscess cavity was bluntly explored and all fluid within the abscess cavity was suctioned out immediately. The sigmoid colon was palpated and found to have a mass. There is no other gross abnormality appreciated. The small bowel was then pulled up into the operative field and inspected. There were no injuries of the small bowel. The small bowel was only abnormal in the position that was adhered to the abscess that had a thick rind on the small bowel mesentery. The small bowel was completely viable though. Next, the procedure continued by performing a sigmoidectomy. The sigmoid and mesocolon were mobilized in a lateral to [place] [address] OPERATIVE REPORT Name: ALEXANDER AN Room: [address] IN [facility].#: [id number] Admission: 08/07/19 Attend Phys: Terry Eden MD Discharge: Date of : 42 Report #: [id number] Toldt was dissected. The lateral attachments were dissected using and electrocautery. The sigmoid colon was able to be pulled up into the operative field and the sigmoid colon was closely inspected. The proximal transection point was identified where the colon became normal in appearance and to palpation. This was at the distal descending colon. The mesocolon was dissected and a window was made underneath the colon at this location. A IDANIA blue load stapler was used to transect the colon at this location. The mesocolon was then dissected and transected with a LigaSure device. The mesocolon was mobilized down to the pelvis. The left ureter was avoided. The dissection continued down to the rectum. The contour blue load stapler was used to transect the distal sigmoid colon at the rectosigmoid junction. The specimen was now free and passed off the field. We then irrigated the abdomen with copious amounts of warm irrigation using several and many liters do so. Next, we focused on making the colostomy. The remaining colon was mobilized further by mobilizing the mesocolon low and being sure to preserve the vascular blood supply to the colonic stump. The colon was visualized and found to be viable and perfused. The defect was made in the patient's abdominal wall next. This was done at the site that was marked by the ostomy nurse in preop. Circular incision was made using a Jc and scalpel. The subcutaneous tissue was then cored out using an electrocautery. The anterior and posterior fascial sheaths were incised using electrocautery in a cruciate fashion. The wound was dilated up to 2 fingers in width. The wound was hemostatic. The colon was then grasped from above and pulled into the abdominal wall defect that was created. The orientation of the colon was ensured. We made sure that it was not twisted. The abdomen was reinspected. Hemostasis was present. All free fluid was suctioned out. The fascia was closed using #1 looped PDS in continuous running fashion. The subcutaneous wound was irrigated out with copious amount of sterile saline. The skin was closed using ismael and a JULIA device was placed. Next, the colostomy was matured using chromic suture and brooking colostomy in 4 quadrants and placing simple interrupted sutures in the spleen. Next, the colostomy appliance was placed. The patient tolerated the procedure well. There were no adverse events throughout the course of the procedure. The patient was extubated and transferred to the PACU in stable condition. <ELECTRONICALLY SIGNED> By: Oseas James MD 08/16/19 1210 1604 1914Cjohnny James MD /nt
--- NOTE | 2019-08-16 15:00 | NUR ---
PT.HAD SIGMOIDECTOMY AND COLOSTOMY ON 08/12. SLEPT PRETTY MUCH OF THE ITME, WHILE I SPOKE WITH . SHE HAS BEEN READY PAMPLET ABOUT COLOSTOMIES THAT OSTOMY NURSE,KRISTI LEFT YESTERDAY. NOT ABLE TO BE THERE WHEN TEACHING WAS DONE BY KRISTI. ASKED WHEN PT.MAY GET TO COME HOME. EXPLAINED HE WOULD NEED TO BE EATING SOLID FOOD AND TOLERATING THEM. ALSO NEEDS COURSE OF HIS ANTIBIOTICS WHICHWILL BE DETERMINED BY ID. DISCUSSED HOME HEALTH AND THE HE AND WILL NEED TO BE ABLE TO CARE FOR OSTOMY, HH CANNOT COME OUT EVERYTIME BAG NEEDS EMPTIED OR CHANGED. NURSING NEEDS TO REINFORCE TEACHING TO PT.AND . CM WILL CALL PT.'S INSURANCE TO REQUEST LIST OF HH AGENCIES HE CAN USE AT DISCHARGE.
[2019-08-16 16:29] VITALS: BP 132/70
--- NOTE | 2019-08-16 16:55 | NUR ---
PT REMAINED ALERT AND ORIENTED. PT RESTING IN BED. PT WAS DROWSY THIS SHIFT. FALL RISK [id number] IN PLACE. HOURLY ROUNDING COMPLETED. PT TOLERATED CLEAR LIQUID DIET. WILL CONTINUE TO MONITOR.
[2019-08-16 20:00] VITALS: BP 150/75
[2019-08-17] VITALS: BP 124/68
[2019-08-17 04:00] VITALS: BP 145/70
[2019-08-17 05:21] LABS: ABSOLUTE EOSINOPHILS 0.2 thou/uL (0.0-0.7); ABSOLUTE MONOCYTES 0.9 thou/uL (0.0-1.2); ABSOLUTE NEUTROPHILS 10.6 thou/uL (1.6-8.1); BASOPHILS 0.2 %; NUCLEATED RBCS 0 /100WBC; WBC 12.7 thou/uL (4.0-11.0)
[2019-08-17 05:23] LABS: EOSINOPHILS 1.4 %; HEMATOCRIT 40.9 % (42.0-52.0); HEMOGLOBIN 13.9 gm/dL (14.0-18.0); LYMPHOCYTES 7.8 %; MCH 29.6 pg (26.0-34.0); MCHC 33.9 g/dL (28.0-37.0); MCV 87.3 fL (80.0-100.0); MPV 8.2 fl. (7.2-11.1); PLATELET COUNT* 385 thou/uL (150-400); POLYS 83.6 %; RBC 4.69 mil/uL (4.50-6.00); RDW-CV 14.2 % (10.5-14.5)
[2019-08-17 05:31] LABS: CALCIUM 8.1 mg/dL (8.5-10.1); CREATININE 0.9 mg/dL (0.6-1.3); POTASSIUM 4.4 mmol/L (3.5-5.1)
--- NOTE | 2019-08-17 05:38 | NUR ---
PATIENT HAS SLEPT OFF AND ON DURING THE NIGHT. VSS ON RA. MEDICATIONS GIVEN ORDERED AND CHARTED. ASSESSMENT CHARTED. PATIENT STILL HAS DISTENDED ABDOMEN AND HAS HAD SOME SLIGHT NAUSEA AND SMALL AMOUNT OF EMESIS EARLY IN THE NIGHT BUT HAS SINCE RESOLVED. BOWEL SOUNDS ARE HYPERACTIVE. DRESSING TO ABDOMEN IS C/D/I AND WOUND VAC IN PLACE. COLOSTOMY IN PLACE WITH MODERATE DARK BLACK LIQUID STOOL. IV IN LEFT FOREARM-PPN @ 75ML/HR. PATIENT REMAINS ON CLEAR LIQUIDS BUT HAS NOT BEEN DRINKING MUCH DURING THE NIGHT. PATIENT INSTRUCTED TO USE CALL LIGHT WHEN NEEDING ASSISTANCE. HOURLY ROUNDS MADE. WILL CONTINUE WITH PLAN OF CARE AND NURSING TO MONITOR.
[2019-08-17 07:25] VITALS: BP 149/60
--- NOTE | 2019-08-17 15:07 | PATH ---
[address] [address] PATHOLOGY RPT PROCEDURE Name: ALEXANDER HARO Room: [address] IN M.R.#: [id number] Admission: 08/07/19 Date of : 42 Discharge: Report #: [id number] Path Case #: [id number] [facility] Accession Number: [id number] . 01 Material submitted: . sigmoid colon - SIGMOID . 01 Clinical history: . Pre-op diagnosis: Abdominal pain, perforated diverticulitis Post-op diagnosis: Perforated diverticulitis, abdominal pain . 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 See comment. LBQ 08/17/2019 1333 Local . 02 Comment: The bowel wall in the region of the transmural defect was thinned, however, histologic sections show fresh hemorrhage with few/minimal acute inflammatory cells. (LAUREN/db; 08/17/2019) . 02 Electronically signed: . Emil Shore MD, Pathologist NPI- [id number] . 01 Gross description: . The specimen is received in a minimal amount of formalin, labeled "Alexander Haro, sigmoid colon". Received is an unoriented segment of colon measuring 12.0 cm in length and ranging in diameter from 1.5 to 2.2 cm. Both margins are stapled closed. The serosal surface is pink-dyer to dusky red-brown in appearance. The attached pericolic fat measures up to 4.0 cm in thickness and displays a moderate amount of overlying exudate. Opening the specimen reveals light randhawa to pink-randhawa mucosa with normal rugal folds. There is a transmural defect at the mid aspect of the specimen, without definite inflammatory features, measuring 1.4 cm in length. The surrounding serosal surface is inked black. No additional areas of perforation are noted. Sectioning through the attached pericolic fat reveals no readily identifiable lymph nodes. The specimen is submitted representatively as follows: . A1-A2 both margins A3-A4 entire transmural defect A5-A8 inbound call center representative sections of diverticula. (CAA; 08/16/2019) QAC/QAC 08/17/2019 [address] [place] [address] PATHOLOGY RPT PROCEDURE Name: ALEXANDER HARO Room: [address] IN M.R.#: [id number] Admission: 08/07/19 Date of : 42 Discharge: Report #: [id number] Path Case #: [id number] . 02 Pathologist provided ICD-10: K57.32, K65.8 . 02 CPT . 752855 Specimen Comment: A courtesy copy of this report has been sent to [phone]- Specimen Comment: [phone], Specimen Comment: Report sent to ,DR MCCORMACK / DR GANN Performed at: 01 [facility] [address], [place], [place] [id number] MD William Owens MD Phone: [phone] Performed at: 02 [facility] [address], [place] [address] MD Emil Shore MD Phone: [phone]
[2019-08-17 15:32] VITALS: BP 151/63
--- NOTE | 2019-08-17 17:08 | NUR ---
pt remained alert and oriented. pt resting in bed. pt npo. pain meds and nausea meds given as ordered. fall risk precautions in place. colostomy draining. will continue to monitor.
[2019-08-17 20:21] VITALS: BP 117/58
[2019-08-18 04:16] LABS: ABSOLUTE EOSINOPHILS 0.2 thou/uL (0.0-0.7); ABSOLUTE LYMPHOCYTES 1.1 thou/uL (0.8-5.3); ABSOLUTE MONOCYTES 0.9 thou/uL (0.0-1.2); ABSOLUTE NEUTROPHILS 12.4 thou/uL (1.6-8.1); BASOPHILS 0.2 %; EOSINOPHILS 1.4 %; HEMATOCRIT 39.6 % (42.0-52.0); HEMOGLOBIN 13.3 gm/dL (14.0-18.0); LYMPHOCYTES 7.4 %; MCH 29.5 pg (26.0-34.0); MCHC 33.7 g/dL (28.0-37.0); MCV 87.6 fL (80.0-100.0); MONOCYTES 6.2 %; MPV 8.4 fl. (7.2-11.1); NUCLEATED RBCS 0 /100WBC; PLATELET COUNT* 391 thou/uL (150-400); POLYS 84.8 %; RBC 4.52 mil/uL (4.50-6.00); RDW-CV 14.3 % (10.5-14.5); WBC 14.6 thou/uL (4.0-11.0)
[2019-08-18 04:55] LABS: ALBUMIN 2.5 g/dL (3.4-5.0); CALCIUM 7.9 mg/dL (8.5-10.1); POTASSIUM 4.5 mmol/L (3.5-5.1); TOTAL BILIRUBIN 0.8 mg/dL (<0.1-1.0); TOTAL PROTEIN 6.5 g/dL (6.4-8.2)
--- NOTE | 2019-08-18 06:12 | NUR ---
PATIENT DID NOT REPORT AND PAIN REFUSED SCHEDULED TYLENOL. DISPLAYED FREQUENT CONFUSION IS ALERT TO SELF. WE HAD TO REDIRECT HIM SEVERAL TIMES TO WHERE HE WAS AND WHY HE WAS HERE. HE WAS ASKING TO GET UP AND CALL HIS WORK AND HIS . HE WAS VERBALLY CALLING OUT THROUGH THE NIGHT SOUNDING CONFUSED. WE ORIENTED HIM BACK TO THE TIME AND TO CHECK ON HIM OFTEN. HE HAS BEEN NPO THIS SHIFT. WILL CONTINUE TO FOLLOW PLAN OF CARE.
[2019-08-18 09:00] VITALS: BP 140/72
--- NOTE | 2019-08-18 15:51 | NUR ---
PT.SOMEWHAT CONFUSED THIS AM. WAS TRYING TO GET OOB BY SELF WHEN CM CAME INTO ROOM. CM CALLED FOR MONOTYPER. HE WANTED TO WALK TO BATHROOM. HE DID FAIR WITH WALKER AND 2 OF US. SPOKE WITH THIS AFTERNOON. PT.WILL MOST LIKELY BE HERE OVER THE WEEKEND. STILL NPO,ETC. DISCUSSED HOME HEALTH WITH HER. GAVE HER LIST OF HH THAT CONTRACT WITH THEIR INSURANCE. SHE CHOSE [facility]. CM ALSO TOLD HER IF PT.STILL CONFUSED,NOT DOING WELL IN THERAPY COULD GO TO SNF IF NEEDED. SHE SAID SHE WOULD RATHER HIM GO HOME [facility]. CM VERIFIED WITH LUCIE/ALEXANDRU THAT THEY DO TAKE PT.S INSURANCE AND DO GO TO [place] WHERE HE AND LIVE. FAXED REFERRAL TO [facility]. [phone]/[phone] DISCHARGED WITH HH OVER THE WEEKEND.
[2019-08-18 16:21] VITALS: BP 142/63
--- NOTE | 2019-08-18 16:33 | NUR ---
ASSUMED CARE OF PATIENT AT APPROX 0730. ALERT AND ORIENTED BUT CONFUSED AT TIMES. NO COMPLAINTS OF NAUSEA OR VOMITING THIS SHIFT. NO COMPLAINTS OF PAIN. PROCAL INFUSED ORDERED. PATIENT REMAINS NPO AT THIS TIME, WILL ADVANCE TO CLEARS TOMORROW, PER SURGERY. PATIENT UP WITH ONE, USING WALKER. NO OTHER COMPLAINTS THIS SHIFT. FALL PRECAUTIONS IN PLACE. CALL LIGHT WITHIN REACH. HOURLY ROUNDS COMPLETED. WILL CONTINUE WITH PLAN OF CARE.
[2019-08-18 21:17] VITALS: BP 124/67
--- NOTE | 2019-08-19 06:13 | NUR ---
PATIENT WAS ABLE TO REST THROUGH THE NIGHT. HE DID TAKE A DOSE OF TYLENOL. TOOK ALL MEDS SCHEDULED. NO REPORTS OF PAIN OR NAUSEA. COLOSTOMY OUTPUT STILL STEADY ABDOMEN DISTENDED. NO WORSENING OF CONDITION REPORTED BY PATIENT. WILL CONTINUE TO FOLLOW PLAN OF CARE.
[2019-08-19 08:30] VITALS: BP 151/68
[2019-08-19 09:24] LABS: CALCIUM 8.3 mg/dL (8.5-10.1); CREATININE 0.9 mg/dL (0.6-1.3); MAGNESIUM 2.2 mg/dL (1.8-2.4); POTASSIUM 4.6 mmol/L (3.5-5.1)
[2019-08-19 16:35] VITALS: BP 140/65
--- NOTE | 2019-08-19 19:00 | NUR ---
PATIENT AWAKE IN BED. PATIENT AMBULATED WITH ASSITANCE, GAIT BELT, AND WALKER TO CHAIR FOR MEALS. ALL SAFETY MEASURES MAINTAINED. PATIENT USED IS ONCE THIS SHIFT. EDUCATION GIVEN. PATIENT REPORTS UNDERSTANDING. PATIENT DECLINED TO AMBULATE IN HALLWAY.
--- NOTE | 2019-08-20 04:14 | NUR ---
VSS. SEE MAR. SEE CHARTING. PROGRESSING TOWARDS GOALS. FALL PRECAUTIONS IN PLACE. HOURLY ROUNDING FOR SAFETY.
[2019-08-20 07:55] VITALS: BP 193/74
[2019-08-20 09:34] LABS: HEMATOCRIT 41.5 % (42.0-52.0); HEMOGLOBIN 14.1 gm/dL (14.0-18.0); MCH 29.9 pg (26.0-34.0); MCHC 33.9 g/dL (28.0-37.0); MCV 88.4 fL (80.0-100.0); MPV 8.2 fl. (7.2-11.1); PLATELET COUNT* 358 thou/uL (150-400); RBC 4.69 mil/uL (4.50-6.00); RDW-CV 14.6 % (10.5-14.5); WBC 14.2 thou/uL (4.0-11.0)
[2019-08-20 10:01] LABS: CALCIUM 8.7 mg/dL (8.5-10.1); CREATININE 0.9 mg/dL (0.6-1.3); MAGNESIUM 2.2 mg/dL (1.8-2.4); POTASSIUM 5.3 mmol/L (3.5-5.1)
[2019-08-20 12:41] LABS: ABSOLUTE BASOPHILS 0.1 thou/uL (0.0-0.2); ABSOLUTE LYMPHOCYTES 1.4 thou/uL (0.8-5.3); ABSOLUTE MONOCYTES 0.9 thou/uL (0.0-1.2); ABSOLUTE NEUTROPHILS 11.8 thou/uL (1.6-8.1)
[2019-08-20 12:42] LABS: PLATELET ESTIMATE ADEQUATE
[2019-08-20 12:55] LABS: ALBUMIN 2.6 g/dL (3.4-5.0); TOTAL BILIRUBIN 0.7 mg/dL (<0.1-1.0); TOTAL PROTEIN 6.3 g/dL (6.4-8.2)
--- NOTE | 2019-08-20 18:37 | NUR ---
PATIENT RESTING IN BED. PATIEN TIS UP STANDBY ASSIST WITH WALKER AND GAIT BELT. PATIENT DENIES ANY PAIN. PATIENT HAS COLOSTOMY WITH LIQUID GREEN STOOL. PATIENT WAS NAUSEATED THIS AM WITH BREAKFAST BUT HAS TOLERATED SMALL AMOUNTS OF LUNCH AND DINNER. PATIENT DENIES ANY NEEDS AT THIS TIME. CALL LIGHT WITHIN REACH. WILL CONTINUE TO MONITOR.
[2019-08-20 19:40] VITALS: BP 132/72
--- NOTE | 2019-08-21 05:09 | NUR ---
IV SITE INFILTRATED. UNABLE TO RESTART IV. ORDER RECIEVED TO PLACE PICC LINE WHILE PT RECIEVING PARENTERAL NUTRITION.
[2019-08-21 05:56] VITALS: BP 130/58
[2019-08-21 08:43] VITALS: BP 131/55
--- NOTE | 2019-08-21 09:14 | NUR ---
ASSUMED CARE OF PT AROUND 0730 THIS AM. REFER TO ASSESSMENT. PT SLEEPING THIS AM. EASILY AROUSABLE AND QUICKLY DRIFTS BACK TO SLEEP. PT HAS NO C/O PAIN. ENCOURAGED ORAL INTAKE WITH BREAKFAST. PT REPORTS POOR APPETITE AT THIS TIME. NO IV ACCESS AT THIS TIME. WAITING TO DISCUSS WITH PHYSICIAN. NO OTHER CONCERNS AT THIS TIME. CLWR. WCTM.
--- NOTE | 2019-08-21 16:02 | NUR ---
PT SOMEWHAT PROGRESSING TOWARDS GOALS THIS SHIFT. ENCOURAGING ORAL INTAKE. PT HAS HAD POOR APPETITE. DOING WELL WITH SUPPLEMENTAL SHAKES. UNABLE TO OBTAIN IV ACCESS. DISCUSSED WITH SURGEON. OK TO LEAVE OUT IV AT THIS TIME AND NEED TO RE-EVAL IF PT HAS POOR ORAL INTAKE. PT HAVING ADEQUATE OUTPUT TO COLOSTOMY THIS SHIFT. CONTINUES TO HAVE CONFUSION AND NONCOMPLIANT WITH FALL PRECAUTIONS. BED ALARM AT ALL TIMES. NO OTHER CONCERNS AT THIS TIME. CLWR WCTM.
[2019-08-21 16:30] VITALS: BP 128/51
[2019-08-21 21:00] VITALS: BP 115/51
[2019-08-22 04:41] LABS: HEMATOCRIT 37.7 % (42.0-52.0); HEMOGLOBIN 13.1 gm/dL (14.0-18.0); MCH 30.2 pg (26.0-34.0); MCHC 34.9 g/dL (28.0-37.0); MCV 86.6 fL (80.0-100.0); MPV 8.7 fl. (7.2-11.1); RBC 4.35 mil/uL (4.50-6.00); RDW-CV 14.4 % (10.5-14.5); WBC 7.7 thou/uL (4.0-11.0)
[2019-08-22 05:14] LABS: CALCIUM 8.3 mg/dL (8.5-10.1); CREATININE 0.9 mg/dL (0.6-1.3); POTASSIUM 4.4 mmol/L (3.5-5.1)
--- NOTE | 2019-08-22 07:00 | NUR ---
PROGRESSING TOWARDS GOALS, ALERT TO PERSON ONLY AT BEGINNING SHIFT, NOW A/O X3, FOLLOWING COMMANDS, UP TO BR WITH X1 ASSIST, COLOSTOMY GREEN LIQUID STOOL EMPTIED X2, AFEBRILE, DENIES PAIN OR DISCOMFORT, ENCOURAGED PO INTAKE, SAFETY MAINTAINED.
--- NOTE | 2019-08-22 14:45 | NUR ---
OSTOMY NURSE - CALLED HIS , GIOVANA, THIS AM AND ARRANGED VISIT PER A CONVENIENT TIME WITH HER, AFTER MUCH ENCOURAGEMENT, SHE STATES THAT PLAN IS NOW FOR PATIENT TO GO TO SNF FOR 2 WEEKS, AND THEN HE WILL HAVE HOME HEALTH. AGAIN REITERATED THE IMPORTANCE OF PROVIDING OSTOMY SELF-CARE EDUCATION WHILE HE IS HERE, AND THAT HE WILL NEED SOME ASSISTANCE FROM HER INITIALLY AT HOME. ABDOMEN REMAINS SOMEWHAT ROUNDED/DISTENDED AND SOFT - STATES HIS USUAL. COLOSTOMY STOMA LEFT ABDOMEN REMAINS BEEFY RED, MOIST, SLIGHTLY EDEMATOUS WITH MUCOCUTANEOUS INCISION WELL APPROXIMATED. PERISTOMAL SKIN INTACT, DRAINING SMALL AMOUNTS OF LOOSE BROWN STOOL. DR GROVES IN JUST I WAS APPLYING POUCH, WITH OPENING OFFSET TO AVOID JULIA TO MIDLINE INCISION. HE WAS ABLE TO ASSESS STOMA, WHICH HE AGREES LOOKS GOOD. SINCE NOW 10 DAYS POST-OP, DR GROVES STATED OKAY TO REMOVE JULIA DRESSING. MIDLINE ABDOMINAL INCISION WELL APPROXIMATED WITH THERESA, SCANT SEROSANGUINEOUS DRAINAGE, NO ERYTHEMA OR TENDERNESS. AREA CLEANSED WELL WITH SALINE, AND COVERED WITH [place] DRESSING. TOOK PHOTOS ON HER PHONE OF INCISION AND STOMA. PATIENT AND BOTH VERY DIFFICULT TO KEEP FOCUSED WHILE PROVIDING TEACHING, BUT WAS EVENTUALLY ABLE TO DEMONSTRATE POUCH EMPTYING AND POUCH CHANGE TO BOTH OF THEM, WITH PATIENT ASSISTING SLIGHTLY. CONFIRMED THAT [employer] SECURE STARTS PACKET HAS BEEN DELIVERED - ENCOURAGED TO VIEW VIDEOS. SHE WILL ALSO TAKE COLOSTOMY TEACHING PACKET HOME - SUPPLIES AND EXTRA COPY OF POUCH CHANGE INSTRUCTIONS AT BEDSIDE.
[2019-08-22 16:10] VITALS: BP 118/65
--- NOTE | 2019-08-22 16:53 | NUR ---
PT AWAKE/ALERT, CONFUSED AT TIMES. PT DENIES PAIN AT THIS TIME. PT HAS NO IV ACCESS AT THIS TIME. PO MEDS AND INTAKE ENCOURAGED AND TOLERATED WELL. PT UP W/ ASSIST X1 AND WALKER. OSTOMY TO RUQ PATENT. WOUND VAC TO MIDLINE POST-SX. DRESSING REMAINS C/D/I. PT REMAINS CONTINENT AND USES CALL LIGHT TO REQUEST ASSISTANCE NEEDED. PT RESTS IN ROOM WITH CALL IGHT IN REACH. WILL CONTINUE TO MONITOR.
[2019-08-22 20:44] VITALS: BP 131/55
--- NOTE | 2019-08-23 05:13 | NUR ---
PATIENT HAD TO BE ORIENTED TO PLACE AND TIME SEVERAL TIMES THROUGH THE NIGHT. HE DID NOT REQUEST AND PAIN MEDICATION OR REPORT ANY WORSENING OF CONDITION. HE IS ABLE TO AMBULATE WITH ASSISTANCE AND WALKER TO RESTROOM. HOURLY ROUNDING DONE AND BED ALARM KEPT ON. WILL CONTINUE TO FOLLOW PLAN OF CARE.
[2019-08-23 07:30] VITALS: BP 149/63
--- NOTE | 2019-08-23 13:39 | NUR ---
SW met with pt to discuss dc planning and SNF placement. Pt was agreeable to dc plan but was unable to provide details about SNF; pt discussed SW to contact pt for dc planning as well. SW faxed pt referral to a couple SNFs listed in network with pt insurance: [facility]. SW to continue to follow to assist with finalizing safe dc planning/SNF placement. DC pending SNF acceptance and insurance auth.
[2019-08-23 16:54] VITALS: BP 140/53
--- NOTE | 2019-08-23 16:58 | NUR ---
PT A&Ox2-3. VITALS STABLE. NO IV. MINIMAL PAIN, RATING 1/10 REFUSING PAIN MEDS. DENIED N/V. UP STAND BY. FALL PRECAUTIONS IN PLACE. PT DOES NOT FOLLOW FALL PROTOCAL, EDUCATED MULTIPLE TIMES. PT WANTING TO GO TO [facility] FOR FURTHER THERAPY. CALL LIGHT WITHIN REACH. WILL CONTINUE TO MONITOR.
[2019-08-23 20:37] VITALS: BP 119/49
--- NOTE | 2019-08-24 05:52 | NUR ---
PATIENT WAS ABLE TO REST MOST OF THE NIGHT. HE NEEDS TO BE REORIENTED TO WHERE HE IS AND WHAT TIME IT IS WHEN HE WAKES UP. HE IS ABLE TO USE WALKER TO RESTROOM. DENIED ANY PAIN OR NAUSEA UPON ASSESSMENT. PLAN IS TO FOLLOW UP WITH DR MAZARIEGOS IN 2 WEEKS AT THIS TIME AWAITING PLACEMENT IN SNF OR . WILL CONTINUE TO FOLLOW PLAN OF CARE.
[2019-08-24 08:00] VITALS: BP 125/61
--- NOTE | 2019-08-24 11:19 | NUR ---
SPOKE WITH [employer]. SHE IS WAITING ON AUTH FROM PT.'S INS. SHE HOPES TO HAVE IT BY THIS AFTERNOON. SHE WILL CALL CM WHEN SHE DOES HAVE IT.
[2019-08-24 13:38] VITALS: BP 125/61
--- NOTE | 2019-08-24 15:22 | NUR ---
PT DISCHARGED TO [facility] BY WHEELCHAIR VAN AT 1506. NO IV. PT STABLE UPON DISCHARGE. REPORT CALLED AT 1420. PAPER SCRIPT SENT WITH DISCHARGE.
== END 2019-08-24 15:06 | DRG 853 ==
LOC: M.ERS 14:57 → M.ORTHSURG 16:51 → M.3W 16:51 → M.TBA-ER 16:51 → M.3W 18:22 → M.2W 08-12 21:20 → M.ORTHSURG 08-14 18:15
PROVIDERS: Family Medicine; Internal Medicine; Physician Assistant; Surgery; ADMIT Internal Medicine
PROC: 0DBN0ZZ Excision of Sigmoid Colon, Open Approach (ICD-10-PCS; principal; 2019-08-12)
PROC: 0DSN0ZZ Reposition Sigmoid Colon, Open Approach (ICD-10-PCS; 2019-08-12)
DX: A41.9 Sepsis, unspecified organism (principal); G92 Toxic encephalopathy; K65.1 Peritoneal abscess; K57.20 Diverticulitis of large intestine with perforation and abscess without bleeding; E44.0 Moderate protein-calorie malnutrition; K56.609 Unspecified intestinal obstruction, unspecified as to partial versus complete obstruction; K56.7 Ileus, unspecified; D68.59 Other primary thrombophilia; E87.1 Hypo-osmolality and hyponatremia; E78.5 Hyperlipidemia, unspecified; E11.9 Type 2 diabetes mellitus without complications; I50.9 Heart failure, unspecified; I48.91 Unspecified atrial fibrillation; K52.9 Noninfective gastroenteritis and colitis, unspecified; I11.0 Hypertensive heart disease with heart failure; K66.8 Other specified disorders of peritoneum; I44.1 Atrioventricular block, second degree; Z79.01 Long term (current) use of anticoagulants; Z86.73 Personal history of transient ischemic attack (TIA), and cerebral infarction without residual deficits; Z95.0 Presence of cardiac pacemaker; Z88.0 Allergy status to penicillin; Z87.891 Personal history of nicotine dependence; Z23 Encounter for immunization; Z68.31 Body mass index [BMI] 31.0-31.9, adult; Z79.899 Other long term (current) drug therapy

== ENCOUNTER 2021-05-16 08:26 | Observation (INO) | payer OTHER ==
[~2021-05-16] VITALS: Ht 172.7 cm; Wt 90.7 kg
[~2021-05-16 08:26] MED LIST changes: +BRILINTA60 MG PO; +ELIQUIS5 MG PO; +NEURONTIN 300M300 M2 PO; +ORADENT 0.1% DEN5 G1 TOP; +TRAMADOL 50 MG50 MG PO; +VENLAFAXINE H37.5 MG PO; +VITAMIN D35000 UNIT PO
[2021-05-16 08:32] VITALS: BP 171/71
[2021-05-16 09:21] LABS: ABSOLUTE EOSINOPHILS 0.2 thou/uL (0.0-0.7); ABSOLUTE MONOCYTES 1.4 thou/uL (0.0-1.2); ABSOLUTE NEUTROPHILS 13.2 thou/uL (1.6-8.1); BASOPHILS 0.2 %; EOSINOPHILS 1.4 %; HEMATOCRIT 40.1 % (42.0-52.0); LYMPHOCYTES 6.2 %; MCH 28.7 pg (26.0-34.0); MCHC 32.3 g/dL (28.0-37.0); MCV 88.9 fL (80.0-100.0); MPV 8.2 fl. (7.2-11.1); NUCLEATED RBCS 0 /100WBC; PLATELET COUNT* 231 thou/uL (150-400); POLYS 83.2 %; RBC 4.52 mil/uL (4.50-6.00); RDW-CV 15.2 % (10.5-14.5); WBC 15.9 thou/uL (4.0-11.0)
[2021-05-16 09:28] LABS: CALCIUM 8.4 mg/dL (8.5-10.1); CREATININE 1.2 mg/dL (0.6-1.3); POTASSIUM 3.8 mmol/L (3.5-5.1)
[2021-05-16 09:33] LABS: ALBUMIN 3.6 g/dL (3.4-5.0); TOTAL BILIRUBIN 1.6 mg/dL (<0.1-1.0); TOTAL PROTEIN 6.9 g/dL (6.4-8.2)
--- NOTE | 2021-05-16 11:18 | EKG ---
[place] [address] ELECTROCARDIOGRAM REPORT Name: ALEXANDER AN Room: [place] [address] ADM IN .R.#: [id number] Admission: 05/16/21 Attend Phys: Lei Ashley Discharge: Date of : 42 Date of Service: 05/16/21 0840 Report #: [id number] THIS REPORT FOR: //name// [facility] ED Test Date: 2021-05-16 Test Time: 08:40:15 Pat Name: ALEXANDER AN Department: Room: [facility] Gender: M Computer Numerical Control Programmer: TREVA : 1940 Requested By: Dale Barnes Order Number: [id number] MD: Marcell Cline Measurements Intervals [place] Rate: 58 P: [place]: QRS: -65 QRSD: 147 T: 120 QT: 547 QTc: 538 Interpretive Statements Afib/flutter and ventricular-paced rhythm No further analysis attempted due to paced rhythm Compared to ECG 08/07/2019 15:05:49 No significant changes Electronically Signed On 05-16-2021 11:17:51 CDT by Marcell Cline [email or web address] <ELECTRONICALLY SIGNED> By: Marcell Cline MD, [facility] 05/16/21 1117 0840 0840 Marcell Cline MD, [facility] /EPI
--- NOTE | 2021-05-16 13:28 | NUR ---
PT GIVEN LUNCH TRAY.
[2021-05-16] MEDS ORDERED: FLOMAX0.4 MG PO (14:18)
[2021-05-16] MEDS ORDERED: NORCO5 PO (14:18)
[2021-05-16] MEDS ORDERED: BENICAR20 MG PO (14:19)
[2021-05-16] MEDS ORDERED: NORVASC10 MG PO (14:19)
[2021-05-16 18:00] VITALS: BP 179/65
[2021-05-16 22:00] VITALS: BP 175/80
[2021-05-17 00:51] LABS: HEMATOCRIT 38.7 % (42.0-52.0); HEMOGLOBIN 12.6 gm/dL (14.0-18.0); MCH 28.9 pg (26.0-34.0); MCHC 32.4 g/dL (28.0-37.0); MPV 8.2 fl. (7.2-11.1); RBC 4.35 mil/uL (4.50-6.00); RDW-CV 15.3 % (10.5-14.5); WBC 12.8 thou/uL (4.0-11.0)
[2021-05-17 01:01] LABS: CREATININE 1.1 mg/dL (0.6-1.3); POTASSIUM 3.9 mmol/L (3.5-5.1)
[2021-05-17 02:06] LABS: GLYCOHEMOGLOBIN (HGB A1C) 6.1 % (4.8-5.6)
[2021-05-17 02:30] VITALS: BP 177/83
[2021-05-17 06:34] VITALS: BP 112/70
[2021-05-17] MEDS ORDERED: DOXYCYCLINE 10100 M2 PO (09:15)
[2021-05-17 11:24] VITALS: BP 139/58
[2021-05-17 12:35] VITALS: BP 139/58
--- NOTE | 2021-05-17 13:55 | NUR ---
PT DISCHARGED AT 1355 FROM INPATIENT.
--- NOTE | 2021-05-17 14:22 | NUR ---
PER RN, PATIENT HAS DC'ED FROM [facility]. NO FURTHER RECOMMENDATIONS. JANES REEVES, MPT
== END 2021-05-17 13:56 | disposition home or self-care (01) ==
LOC: M.ERS 08:26 → M.TBA-ER 09:58
PROVIDERS: Emergency Medicine; Family Medicine; ADMIT Internal Medicine; ATTEND Internal Medicine
DX: J18.9 Pneumonia, unspecified organism (principal); D72.829 Elevated white blood cell count, unspecified; Z20.822 Contact with and (suspected) exposure to COVID-19; K59.00 Constipation, unspecified; R74.8 Abnormal levels of other serum enzymes; E11.9 Type 2 diabetes mellitus without complications; I48.20 Chronic atrial fibrillation, unspecified; E78.5 Hyperlipidemia, unspecified; Z79.899 Other long term (current) drug therapy; Z79.84 Long term (current) use of oral hypoglycemic drugs; Z88.0 Allergy status to penicillin